=== PATIENT | female | born 1945 | race Caucasian/White ===

== ENCOUNTER 2017-04-09 12:23 | Emergency (ER) | payer MEDICARE, BC ==
[2017-04-09 12:31] VITALS: BP 146/71
[2017-04-09] MEDS ORDERED: methylPREDNISolone Sodium Succinate 125 MG/2 ML SDV IM ONE (12:37)
--- NOTE | 2017-04-09 12:37 | EDM.PDOC ---
ED HPI GENERAL MEDICAL PROBLEM - General Chief Complaint: Bite:Animal, Insect Stated Complaint: bee sting Time Seen by Provider: 04/09/17 12:29 Source of Information: Reports: Patient, Family, RN, RN Notes Reviewed History Limitations: Reports: No Limitations - History of Present Illness INITIAL COMMENTS - FREE TEXT/NARRATIVE: Patient presents to the ED at [facility] s/p insect bite. Patient states she was stung by a bee about one hour ago. Patient states she use a credit card to swipe the area to remove any remaining stinger. Patient also rubbed the area with an Alcohol pad and used a Benadryl stick to the affected area. Onset: Today Onset Date: 04/09/17 Onset Time: 11:15 - Related Data Allergies Allergy/AdvReac Type Severity Reaction Status Date / Time codeine Allergy Syncope Verified 04/09/17 12:34 erythromycin base Allergy Rash Verified 04/09/17 12:34 [Erythromycin Base] Penicillins Allergy Rash Verified 04/09/17 12:34 metronidazole [From Flagyl] AdvReac Nausea Verified 04/09/17 12:34 Pham (Plants) Allergy Shortness Uncoded 01/30/15 08:15 of Breath Home Meds: Home Meds Aspirin 325 mg PO DAILY 04/26/14 [History] Cholecalciferol (Vitamin D3) [Vitamin D3] 400 unit PO DAILY 04/26/14 [History] Clindamycin Phosphate [Cleocin T 1% Lotion] 1 applic TOP BID 04/26/14 [History] Clobetasol [Clobetasol 0.05%] 1 applic TOP BID 04/26/14 [History] Simvastatin [Zocor] 5 mg PO BEDTIME 04/26/14 [History] predniSONE [Deltasone] 20 mg PO BID #6 tablet 04/09/17 [Rx] Past Medical History Other Musculoskeletal History: rt knee pain Social & Family History - Tobacco Use Smoking Status *Q: Never Smoker - Alcohol Use Days Per Week of Alcohol Use: 0 - Recreational Drug Use Recreational Drug Use: No Drug Use in Last 12 Months: No ED ROS GENERAL - Review of Systems Review Of Systems: See Below Constitutional: Denies: Fever, Chills, Weakness HEENT: Reports: No Symptoms Respiratory: Denies: Shortness of Breath, Cough Cardiovascular: Denies: Chest Pain, Palpitations Skin: Reports: Erythema Neurological: Reports: No Symptoms ED EXAM, ANIMAL BITE - Physical Exam Exam: See Below Exam Limited By: No Limitations General Appearance: Alert, No Apparent Distress Throat/Mouth: Normal Inspection, Normal Oropharynx, No Airway Compromise Neck: Supple Respiratory/Chest: No Respiratory Distress, Lungs Clear, Normal Breath Sounds Cardiovascular: Regular Rate, Rhythm Neurological: Alert, Oriented Skin Exam: Normal Color, Warm/Dry, Other (erythema over the proximal 1/3 of the volar surface right arm consistent with bee sting) Lymphadenopathy: Bilateral: No Adenopathy Course - Vital Signs Last Recorded V/S: Last Vital Signs Temp 35.8 C 04/09/17 12:31 Pulse 60 04/09/17 12:31 Resp 16 04/09/17 12:31 BP 146/71 H 04/09/17 12:31 Pulse Ox 97 04/09/17 12:31 - Orders/Labs/Meds Orders: Active Orders 24 hr Category Date Time Status methylPREDNISolone Sod Succ [Solu-MEDROL] Med 04/09/17 12:37 Once 125 mg IM ONETIME ONE Departure - Departure Time of Disposition: 12:38 Disposition: Home, Self-Care 01 Condition: Good Clinical Impression: Bee sting reaction Qualifiers: Encounter type: initial encounter Injury intent: accidental or unintentional Qualified Code(s): T63.441A - Toxic effect of venom of bees, accidental ( unintentional), initial encounter - Discharge Information Prescriptions: predniSONE [Deltasone] 20 mg PO BID #6 tablet Instructions: Insect Bite, [id number] Forms: ED Department Discharge - Problem List Review Problem List Initiated/Reviewed/Updated: Yes - My Orders Last 24 Hours: My Active Orders 04/09/17 12:37 methylPREDNISolone Sod Succ [Solu-MEDROL] 125 mg IM ONETIME ONE - Assessment/Plan Last 24 Hours: My Active Orders 04/09/17 12:37 methylPREDNISolone Sod Succ [Solu-MEDROL] 125 mg IM ONETIME ONE
== END 2017-04-09 12:46 | disposition home or self-care (01) ==
LOC: VM.ED 12:23
DX: T63.441A Toxic effect of venom of bees, accidental (unintentional), initial encounter (principal); Z88.5 Allergy status to narcotic agent; Z88.0 Allergy status to penicillin; Z88.1 Allergy status to other antibiotic agents; Z79.82 Long term (current) use of aspirin
CPT/HCPCS: 96372; 99282; J2930; 99283-GF

== ENCOUNTER 2017-04-17 19:50 | Emergency (ER) | payer MEDICARE, BC ==
[2017-04-17] MEDS ORDERED: Ibuprofen 200 MG Tab PO ONE (20:16)
[2017-04-17 21:19] LABS: CHLORIDE,CL 104 mmol/L (98-107); SODIUM,NA 140 mmol/L (136-145)
[2017-04-17] MEDS ORDERED: Sodium Chloride 0.9% 100 ML IV ONE (22:09)
[2017-04-17] MEDS ORDERED: Iopamidol 612 MG/ML 100 ML Bottle IVPUSH ONE (22:09)
[2017-04-18 01:08] VITALS: BP 138/72
--- NOTE | 2017-04-18 03:05 | ER ---
Date of Service: 04/17/2017 SUBJECTIVE: Bebeto presents to the emergency room with complaints of pain underneath both of her breasts as well as pain in her left anterolateral chest. She states that she began experiencing this discomfort earlier this evening. She states that she has also been mildly short of breath, but she states that this may be secondary to some anxiety associated with the discomfort. The patient states that she has not experienced discomfort like this in the past. She states that she has not been experiencing any fever or chills. Denies any cough or chest congestion. The patient denies any recent trauma. She states that she is not experiencing any other symptoms other than what was previously mentioned. PAST MEDICAL HISTORY: 1. Dyslipidemia. 2. Colon polyps. 3. GERD. 4. Abnormal liver function tests. 5. History of kidney stones. 6. Obesity. 7. Impaired fasting blood glucose. MEDICATIONS: 1. Lipitor. 2. Vitamin D3. 3. Aspirin. ALLERGIES: Codeine, erythromycin, penicillin, simvastatin, Flagyl, and some sen. REVIEW OF SYSTEMS: General: Denies any fever or chills. HEENT: No sore throat, rhinorrhea, or congestion. Respiratory: No shortness of breath. Cardiac: Denies any substernal chest pain. Chest: She does complain of pain to her lower anterior chest wall with radiation into her left anterolateral chest and into the area of her left axilla. Denies any recent trauma. Gastrointestinal: No nausea, vomiting, or diarrhea. No melena, hematochezia, hematemesis. Genitourinary: Denies any dysuria. Musculoskeletal: Please see history of present illness. PHYSICAL EXAMINATION: General: A 72-year-old female patient, who is in no acute distress. Vital Signs: Initial blood pressure was 176/86, pulse rate was 76, temperature was 36.4. Recheck was found to be 140/83. Skin: Warm, pink, and dry. HEENT: Head is normocephalic and atraumatic. Eyes, PERRLA. Extraocular movements are intact. Mouth, oral mucosa is moist. Lungs: Clear to auscultation. Heart: Regular rate and rhythm. Abdomen: Soft, nontender. There is no hepatosplenomegaly or masses noted. Extremities: Without edema. Musculoskeletal: Unable to reproduce the pain on palpation of her anterior or lateral chest. She does complain of some increased discomfort with deep breathing. Neurologic: Cranial nerves II through XII are intact. Her speech is fluent. Her gait is within normal limits. LABORATORY DATA: WBCs 9.6, hemoglobin is 13.8, and platelets are 192. Coag: D- dimer positive at 0.77. Sodium is 140, potassium is 4.2, chloride is 104, bicarb is 27, BUN is 13, creatinine is 1.0, creatinine clearance is 41.45, GFR is 54, glucose is 212, calcium is 9.1, and corrected calcium is 9.56. Total bilirubin is 0.5, AST is 29, ALT is 67, and alkaline phosphatase is 94. Troponin is less than 0.017. Total protein is 6.6 and albumin is 3.4. IMAGING STUDIES: CT angiogram of the patient's chest was obtained. There was no evidence of any pulmonary embolism or acute infiltrate. ASSESSMENT: Atypical chest pain. PLAN: The patient will be discharged. Tylenol, ibuprofen for discomfort. I would like her to return to the emergency room if she develops any chest pain, shortness of breath, lightheadedness, weakness, or other worrisome signs or symptoms. All questions were answered. MWK: 04/18/2017 00:13:23 MODL: 04/18/2017 02:58:29 /[id number]
== END 2017-04-18 00:18 | disposition home or self-care (01) ==
LOC: SUPCPDRO 19:50 → VM.ED 19:50
DX: R07.89 Other chest pain (principal); E78.5 Hyperlipidemia, unspecified; K21.9 Gastro-esophageal reflux disease without esophagitis; E66.9 Obesity, unspecified; Z88.5 Allergy status to narcotic agent; Z88.0 Allergy status to penicillin; Z88.1 Allergy status to other antibiotic agents; Z88.8 Allergy status to other drugs, medicaments and biological substances
CPT/HCPCS: 36415; 71020; 71275; 80053; 84484; 85025; 85379; 93005; 99284; A9270; Q9967

== ENCOUNTER 2018-01-11 02:05 | Observation (INO) | payer MEDICARE, BC ==
[2018-01-11] MEDS ORDERED: Sodium Chloride 0.9% 10 ML Syringe FLUSH PRN (02:18)
[2018-01-11] MEDS ORDERED: GI Cocktail Oral Solution 30 ML PO ONE (02:20)
[2018-01-11] MEDS ORDERED: Ondansetron 4 MG/2 ML SDV IVPUSH ONE (02:20)
[2018-01-11] MEDS ORDERED: Ondansetron 4 MG/2 ML SDV ONE (02:46)
[2018-01-11] MEDS ORDERED: GI Cocktail Oral Solution 30 ML ONE (02:47)
[2018-01-11 02:59] LABS: CHLORIDE,CL 104 mmol/L (98-107); SODIUM,NA 140 mmol/L (136-145)
[2018-01-11] MEDS ORDERED: Take Home: Acetaminophen/HYDROcodone 325-5 MG, 5 Tab Pack PO ONE (05:09)
[2018-01-11] MEDS ORDERED: Take Home: Sulfamethoxazole/Trimethoprim 800-160 MG Tab, 2 Tab Pack PO ONE (05:09)
[2018-01-11] MEDS ORDERED: Tamsulosin 0.4 MG Cap.ER PO ONE (05:10)
[2018-01-11] MEDS ORDERED: HYDROmorphone 1 MG/ML Syringe IVPUSH ONE (05:51)
[2018-01-11] MEDS ORDERED: Sodium Chloride 0.9% 1,000 ML IV ONE ×2 (05:51→06:27)
[2018-01-11] MEDS ORDERED: Tamsulosin 0.4 MG Cap.ER PO SCH (08:00)
[2018-01-11] MEDS: Ondansetron 4 MG/2 ML SDV IVPUSH SCH ×2 (08:04→15:17)
[2018-01-11] MEDS ORDERED: Acetaminophen/HYDROcodone 325-10 MG Tab PO PRN (09:41)
--- NOTE | 2018-01-11 09:49 | EDM.PDOC ---
ED HPI GENERAL MEDICAL PROBLEM - General Chief Complaint: Abdominal Pain Stated Complaint: Abdominal pain Time Seen by Provider: 01/11/18 02:10 Source of Information: Reports: Patient History Limitations: Reports: No Limitations - History of Present Illness INITIAL COMMENTS - FREE TEXT/NARRATIVE: This ER note may be used as an admission H and P. Pt. presents to ER with complaints of abdominal pain, diaphoresis, and groin pain. Pt. states that this discomfort started in the night and woke the pt. from sleep. She states that she is not experiencing any fever or chills. She is nauseated but has not vomited. Pt. denies any shortness of breath of substernal chest discomfort. Denies any flank pain. Onset: Today Onset Date: 01/11/18 Location: Reports: Abdomen Quality: Reports: Sharp Severity: Severe Associated Symptoms: Reports: Diaphoresis, Nausea/Vomiting Treatments TOOL CHECKER: Reports: Acetaminophen Abdomen Pain Score (Numeric/FACES): 8 - Related Data Allergies Allergy/AdvReac Type Severity Reaction Status Date / Time codeine Allergy Syncope Verified 01/11/18 04:14 erythromycin base Allergy Rash Verified 01/11/18 04:14 [Erythromycin Base] Penicillins Allergy Rash Verified 01/11/18 04:14 simvastatin Allergy Rash Verified 01/11/18 04:14 metronidazole [From Flagyl] AdvReac Nausea Verified 01/11/18 04:14 Pham (Plants) Allergy Severe Shortness Uncoded 01/11/18 04:14 of Breath Home Meds: Home Meds Aspirin 325 mg PO DAILY 04/26/14 [History] Clindamycin Phosphate [Cleocin T 1% Lotion] 1 applic TOP BID 04/26/14 [History] Clobetasol [Clobetasol 0.05%] 1 applic TOP BID 04/26/14 [History] atorvaSTATin [Lipitor] 10 mg PO BEDTIME 04/17/17 [History] Famotidine [Pepcid] 20 mg DAILY 07/09/17 [History] Mupirocin Oint [Bactroban Oint] 22 gm TOP DAILY 07/09/17 [History] Past Medical History HEENT History: Reports: Cataract, Other (See Below) Other HEENT History: Aquired deformity of nose Cardiovascular History: Reports: High Cholesterol Respiratory History: Reports: Other (See Below) Other Respiratory History: Hospitalized twice for pneumonia Gastrointestinal History: Reports: Colon Polyp, GERD, Other (See Below) Other Gastrointestinal History: Abnormal Liver Function Genitourinary History: Reports: UTI, Recurrent, Other (See Below) Other Genitourinary History: Fibrocystic breast. History of kidney stones Other Musculoskeletal History: Bilateral knee pain Neurological History: Reports: Other (See Below) Other Neuro History: Paresthesia Psychiatric History: Reports: Other (See Below) Other Psychiatric History: High risk medication use Endocrine/Metabolic History: Reports: Obesity/BMI 30+, Vitamin D Deficiency, Other (See Below) Other Endocrine/Metabolic History: Hyperglycemia. Hirsutism. Elevated testosterone level in female Dermatologic History: Reports: Other (See Below) Other Dermatologic History: Intertrigo (overgrowth of yeast). Lichen planus - Past Surgical History HEENT Surgical History: Reports: Tonsillectomy GI Surgical History: Reports: Appendectomy, Cholecystectomy Female Surgical History: Reports: Breast Biopsy, Hysterectomy Musculoskeletal Surgical History: Reports: Carpal Tunnel Social & Family History - Caffeine Use Caffeine Use: Reports: Other Other Caffeine Use: Rarely drinks caffeine ED ROS GENERAL - Review of Systems Review Of Systems: See Below Constitutional: Reports: Diaphoresis HEENT: Reports: No Symptoms Respiratory: Reports: No Symptoms Cardiovascular: Reports: No Symptoms Endocrine: Reports: No Symptoms GI/Abdominal: Reports: Abdominal Pain, Nausea. Denies: Black Stool, Bloody Stool, Diarrhea, Decreased Appetite, Hematemesis, Vomiting : Reports: No Symptoms Musculoskeletal: Reports: No Symptoms Skin: Reports: No Symptoms Neurological: Reports: No Symptoms Psychiatric: Reports: No Symptoms Hematologic/Lymphatic: Reports: No Symptoms Immunologic: Reports: No Symptoms ED EXAM, GENERAL - Physical Exam Exam: See Below Exam Limited By: No Limitations General Appearance: Alert, WD/WN, No Apparent Distress Eye Exam: Bilateral Eye: EOMI, Normal Fundi, Normal Inspection, PERRL Ears: Normal External Exam, Normal Canal, Hearing Grossly Normal, Normal TMs Ear Exam: Bilateral Ear: Auricle Normal, Canal Normal, TM normal Nose: Normal Inspection, Normal Mucosa, No Blood Throat/Mouth: Normal Inspection, Normal Lips, Normal Teeth, Normal Gums, Normal Oropharynx, Normal Voice, No Airway Compromise Head: Atraumatic, Normocephalic Neck: Normal Inspection, Supple, Non-Tender, Full Range of Motion Respiratory/Chest: No Respiratory Distress, Lungs Clear, Normal Breath Sounds, No Accessory Muscle Use, Chest Non-Tender Cardiovascular: Normal Peripheral Pulses, Regular Rate, Rhythm, No Edema, No Gallop, No JVD, No Murmur, No Rub Peripheral Pulses: 4+: Radial (L), Radial (R) GI/Abdominal: Normal Bowel Sounds, Soft, Non-Tender, No Organomegaly, No Distention, No Abnormal Bruit, No Mass (Female) Exam: Deferred Rectal (Female) Exam: Deferred Back Exam: Normal Inspection, Full Range of Motion, NT Extremities: Normal Inspection, Normal Range of Motion, Non-Tender, Normal Capillary Refill, No Pedal Edema Neurological: Alert, Oriented, CN II-XII Intact, Normal Cognition, Normal Gait, Normal Reflexes, No Motor/Sensory Deficits Psychiatric: Normal Affect, Normal Mood Skin Exam: Warm, Dry, Intact, Normal Color, No Rash Course - Vital Signs Last Recorded V/S: Last Vital Signs Temp 36.3 C 01/11/18 06:31 Pulse 54 L 01/11/18 06:31 Resp 18 01/11/18 06:31 BP 110/45 L 01/11/18 06:31 Pulse Ox 93 L 01/11/18 06:31 - Orders/Labs/Meds Orders: Active Orders 24 hr Category Date Time Status Abdomen Pelvis wo Cont [CT] Stat Exams 01/11/18 03:23 Taken UA W/MICROSCOPIC [URIN] Stat Lab 01/11/18 03:00 Ordered Sodium Chloride 0.9% [Saline Flush] Med 01/11/18 02:18 Active 10 ml FLUSH ASDIRECTED PRN Peripheral IV Insertion Adult [OM.PC] Routine Oth 01/11/18 02:18 Ordered Medication Orders Hydrocodone Bitart/Acetaminophen ([place] 325-10 Mg) 1 tab PO Q4H PRN PRN Reason: Pain (moderate 4-6) Sodium Chloride (Normal Saline) 1,000 mls @ 250 mls/hr IV ONETIME ONE Stop: 01/11/18 10:26 Last Admin: 01/11/18 07:30 Dose: 250 mls/hr Ondansetron HCl (Zofran) 4 mg IVPUSH Q8H ZOYA Last Admin: 01/11/18 08:04 Dose: 4 mg Sodium Chloride (Saline Flush) 10 ml FLUSH ASDIRECTED PRN PRN Reason: Keep Vein Open Tamsulosin HCl (Flomax) 0.4 mg PO DAILY [facility] Last Admin: 01/11/18 08:04 Dose: 0.4 mg Trimethoprim/Sulfamethoxazole (Septra Ds) 1 tab PO BID [facility] Labs: Laboratory Tests 01/11/18 01/11/18 01/11/18 Range/Units 02:30 02:30 02:30 WBC 8.2 (4.0-10.0) x10^3/uL RBC 4.52 (4.00-5.50) x10^6/uL Hgb 13.3 (12.0-16.0) g/dL Hct 41.7 (33.0-47.0) % MCV 92.3 (78.0-93.0) fL MCH 29.4 (26.0-32.0) pg MCHC 31.9 L (32.0-36.0) g/dL RDW Coeff of Kody 14.0 (10.0-15.0) % Plt Count 181 (130-400) x10^3/uL Neut % (Auto) 60.4 (50.0-80.0) % Lymph % (Auto) 29.9 (25.0-50.0) % [place] % (Auto) 6.9 (2.0-11.0) % Eos % (Auto) 2.6 (0.0-4.0) % Baso % (Auto) 0.2 (0.2-1.2) % PT 10.3 (9.6-11.4) SEC INR 1.0 L (2.0-3.5) Sodium 140 (136-145) mmol/L Potassium 3.7 (3.5-5.1) mmol/L Chloride 104 (98-107) mmol/L Carbon Dioxide 28 (21-32) mmol/L Anion Gap 11.7 (10-20) mmol/L BUN 18 (7-18) mg/dL Creatinine 1.2 H (0.55-1.02) mg/dL Est Cr Clr Drug Dosing TNP Estimated GFR (MDRD) 44 Glucose 157 H (74-106) mg/dL Lactic Acid (0.4-2.0) mmol/L Calcium 8.9 (8.5-10.1) mg/dL Corrected Calcium 9.22 (8.5-10.1) mg/dL Total Bilirubin 0.7 (0.2-1.0) mg/dL AST 35 (15-37) U/L ALT 64 H (14-59) U/L Alkaline Phosphatase 85 (46-116) U/L Troponin I < 0.017 (<=0.056) ng/mL C-Reactive Protein 0.3 (<=0.9) mg/dL Total Protein 6.9 (6.4-8.2) g/dL Albumin 3.6 (3.4-5.0) g/dL Globulin 3.3 Albumin/Globulin Ratio 1.09 Urine Color (YELLOW) Urine Appearance (CLEAR) Urine pH (5.0-8.0) Ur Specific [place] Urine Protein (NEGATIVE) mg/dL Urine Glucose (UA) (NEGATIVE) mg/dL Urine Ketones (NEGATIVE) mg/dL Urine Occult Blood (NEGATIVE) Urine Nitrite (NEGATIVE) Urine Bilirubin (NEGATIVE) Urine Urobilinogen (0.2) EU/dL Ur Leukocyte Esterase (NEGATIVE) Urine RBC (NOT SEEN) /HPF Urine WBC (NOT SEEN) /HPF Ur Squamous Epith Cells (NEGATIVE) /HPF Urine Bacteria (NEGATIVE) /HPF Urine Mucus (NEGATIVE) /LPF 01/11/18 01/11/18 Range/Units 02:30 03:00 WBC (4.0-10.0) x10^3/uL RBC (4.00-5.50) x10^6/uL Hgb (12.0-16.0) g/dL Hct (33.0-47.0) % MCV (78.0-93.0) fL MCH (26.0-32.0) pg MCHC (32.0-36.0) g/dL RDW Coeff of Kody (10.0-15.0) % Plt Count (130-400) x10^3/uL Neut % (Auto) (50.0-80.0) % Lymph % (Auto) (25.0-50.0) % [place] % (Auto) (2.0-11.0) % Eos % (Auto) (0.0-4.0) % Baso % (Auto) (0.2-1.2) % PT (9.6-11.4) SEC INR (2.0-3.5) Sodium (136-145) mmol/L Potassium (3.5-5.1) mmol/L Chloride (98-107) mmol/L Carbon Dioxide (21-32) mmol/L Anion Gap (10-20) mmol/L BUN (7-18) mg/dL Creatinine (0.55-1.02) mg/dL Est Cr Clr Drug Dosing Estimated GFR (MDRD) Glucose (74-106) mg/dL Lactic Acid 1.2 (0.4-2.0) mmol/L Calcium (8.5-10.1) mg/dL Corrected Calcium (8.5-10.1) mg/dL Total Bilirubin (0.2-1.0) mg/dL AST (15-37) U/L ALT (14-59) U/L Alkaline Phosphatase (46-116) U/L Troponin I (<=0.056) ng/mL C-Reactive Protein (<=0.9) mg/dL Total Protein (6.4-8.2) g/dL Albumin (3.4-5.0) g/dL Globulin Albumin/Globulin Ratio Urine Color Yellow (YELLOW) Urine Appearance Cloudy H (CLEAR) Urine pH 5.5 (5.0-8.0) Ur Specific [place] >=1.030 Urine Protein 100 H (NEGATIVE) mg/dL Urine Glucose (UA) Negative (NEGATIVE) mg/dL Urine Ketones 15 H (NEGATIVE) mg/dL Urine Occult Blood Large H (NEGATIVE) Urine Nitrite Negative (NEGATIVE) Urine Bilirubin Small H (NEGATIVE) Urine Urobilinogen 0.2 (0.2) EU/dL Ur Leukocyte Esterase Trace H (NEGATIVE) Urine RBC Semi-packed (NOT SEEN) /HPF Urine WBC 5-10 H (NOT SEEN) /HPF Ur Squamous Epith Cells Few H (NEGATIVE) /HPF Urine Bacteria Moderate H (NEGATIVE) /HPF Urine Mucus Not seen (NEGATIVE) /LPF Meds: Medications Generic Name Dose Route Start Last Admin Trade Name Freq PRN Reason Stop Dose Admin Hydrocodone Bitart/Acetaminophen 1 tab 01/11/18 09:41 [place] 325-10 Mg PO Q4H PRN Pain (moderate 4-6) Sodium Chloride 1,000 mls @ 250 mls/hr 01/11/18 06:27 01/11/18 07:30 Normal Saline IV 01/11/18 10:26 250 mls/hr ONETIME ONE Administration Ondansetron HCl 4 mg 01/11/18 06:30 01/11/18 08:04 Zofran IVPUSH 4 mg Q8H ZOYA Administration Sodium Chloride 10 ml 01/11/18 02:18 Saline Flush FLUSH ASDIRECTED PRN Keep Vein Open Tamsulosin HCl 0.4 mg 01/11/18 08:00 01/11/18 08:04 Flomax PO 0.4 mg DAILY ZOYA Administration Trimethoprim/Sulfamethoxazole 1 tab 01/11/18 09:45 Septra Ds PO BID ZOYA Discontinued Medications Generic Name Dose Route Start Last Admin Trade Name Freq PRN Reason Stop Dose Admin Hydrocodone Bitart/Acetaminophen 1 packet 01/11/18 05:09 01/11/18 05:33 Take Home: Acetam/Hydrocodon 325-5 Mg, 5 Pack PO 01/11/18 05:10 1 packet ONETIME ONE Administration Al Hydroxide/Mg Hydroxide 30 ml 01/11/18 02:20 01/11/18 03:30 Gi Cocktail PO 01/11/18 02:21 30 ml ONETIME ONE Administration Hydromorphone HCl 1 mg 01/11/18 05:51 01/11/18 06:05 Dilaudid IVPUSH 01/11/18 05:52 1 mg ONETIME ONE Administration Sodium Chloride 1,000 mls @ 1,000 mls/hr 01/11/18 05:51 01/11/18 06:00 Normal Saline IV 01/11/18 06:50 1,000 mls/hr .BOLUS ONE Administration Ondansetron HCl 4 mg 01/11/18 02:20 01/11/18 03:26 Zofran IVPUSH 01/11/18 02:21 4 mg ONETIME ONE Administration Tamsulosin HCl 0.4 mg 01/11/18 05:10 01/11/18 05:34 Flomax PO 01/11/18 05:11 0.4 mg ONETIME ONE Administration Trimethoprim/Sulfamethoxazole 1 packet 01/11/18 05:09 01/11/18 05:34 Take Home: Sulfameth/Trimet 800-160mg, 2 Pack PO 01/11/18 05:10 1 packet ONETIME ONE Administration Departure - Departure Time of Disposition: 06:31 Disposition: Refer to Observation Clinical Impression: Nephrolithiasis, UTI (urinary tract infection) - Discharge Information - My Orders Last 24 Hours: My Active Orders 01/11/18 02:18 Sodium Chloride 0.9% [Saline Flush] 10 ml FLUSH ASDIRECTED PRN Peripheral IV Insertion Adult [OM.PC] Routine 01/11/18 03:00 UA W/MICROSCOPIC [URIN] Stat 01/11/18 03:23 Abdomen Pelvis wo Cont [CT] Stat - Assessment/Plan Last 24 Hours: My Active Orders 01/11/18 02:18 Sodium Chloride 0.9% [Saline Flush] 10 ml FLUSH ASDIRECTED PRN Peripheral IV Insertion Adult [OM.PC] Routine 01/11/18 03:00 UA W/MICROSCOPIC [URIN] Stat 01/11/18 03:23 Abdomen Pelvis wo Cont [CT] Stat
--- NOTE | 2018-01-11 09:59 | PCM.PN ---
- General Info Date of Service: 01/11/18 Admission Dx/Problem (Free Text): Pt. is feeling much better. Denies and fever or chills. states that her discomfort is much improved after the dilaudid. She states that the nausea is improved after the zofran. Denies any chest pain or shortness of breath. Functional Status: Reports: Pain Controlled - Review of Systems General: Reports: No Symptoms HEENT: Reports: No Symptoms Pulmonary: Reports: No Symptoms Cardiovascular: Reports: No Symptoms Gastrointestinal: Reports: No Symptoms Genitourinary: Reports: No Symptoms Musculoskeletal: Reports: No Symptoms Skin: Reports: No Symptoms Neurological: Reports: No Symptoms Psychiatric: Reports: No Symptoms - Patient Data Vitals - Most Recent: Last Vital Signs Temp 36.3 C 01/11/18 06:31 Pulse 54 L 01/11/18 06:31 Resp 18 01/11/18 06:31 BP 110/45 L 01/11/18 06:31 Pulse Ox 93 L 01/11/18 06:31 Weight - Most Recent: 99.79 kg I&O - Last 24 Hours: Intake & Output 01/10/18 01/11/18 01/11/18 22:59 06:59 14:59 Intake Total 240 Balance 240 Lab Results Last 24 Hours: Laboratory Results - last 24 hr 01/11/18 01/11/18 01/11/18 Range/Units 02:30 02:30 02:30 WBC 8.2 (4.0-10.0) x10^3/uL RBC 4.52 (4.00-5.50) x10^6/uL Hgb 13.3 (12.0-16.0) g/dL Hct 41.7 (33.0-47.0) % MCV 92.3 (78.0-93.0) fL MCH 29.4 (26.0-32.0) pg MCHC 31.9 L (32.0-36.0) g/dL RDW Coeff of Kody 14.0 (10.0-15.0) % Plt Count 181 (130-400) x10^3/uL Neut % (Auto) 60.4 (50.0-80.0) % Lymph % (Auto) 29.9 (25.0-50.0) % [place] % (Auto) 6.9 (2.0-11.0) % Eos % (Auto) 2.6 (0.0-4.0) % Baso % (Auto) 0.2 (0.2-1.2) % PT 10.3 (9.6-11.4) SEC INR 1.0 L (2.0-3.5) Sodium 140 (136-145) mmol/L Potassium 3.7 (3.5-5.1) mmol/L Chloride 104 (98-107) mmol/L Carbon Dioxide 28 (21-32) mmol/L Anion Gap 11.7 (10-20) mmol/L BUN 18 (7-18) mg/dL Creatinine 1.2 H (0.55-1.02) mg/dL Est Cr Clr Drug Dosing TNP Estimated GFR (MDRD) 44 Glucose 157 H (74-106) mg/dL Lactic Acid (0.4-2.0) mmol/L Calcium 8.9 (8.5-10.1) mg/dL Corrected Calcium 9.22 (8.5-10.1) mg/dL Total Bilirubin 0.7 (0.2-1.0) mg/dL AST 35 (15-37) U/L ALT 64 H (14-59) U/L Alkaline Phosphatase 85 (46-116) U/L Troponin I < 0.017 (<=0.056) ng/mL C-Reactive Protein 0.3 (<=0.9) mg/dL Total Protein 6.9 (6.4-8.2) g/dL Albumin 3.6 (3.4-5.0) g/dL Globulin 3.3 Albumin/Globulin Ratio 1.09 Urine Color (YELLOW) Urine Appearance (CLEAR) Urine pH (5.0-8.0) Ur Specific [place] Urine Protein (NEGATIVE) mg/dL Urine Glucose (UA) (NEGATIVE) mg/dL Urine Ketones (NEGATIVE) mg/dL Urine Occult Blood (NEGATIVE) Urine Nitrite (NEGATIVE) Urine Bilirubin (NEGATIVE) Urine Urobilinogen (0.2) EU/dL Ur Leukocyte Esterase (NEGATIVE) Urine RBC (NOT SEEN) /HPF Urine WBC (NOT SEEN) /HPF Ur Squamous Epith Cells (NEGATIVE) /HPF Urine Bacteria (NEGATIVE) /HPF Urine Mucus (NEGATIVE) /LPF 01/11/18 01/11/18 Range/Units 02:30 03:00 WBC (4.0-10.0) x10^3/uL RBC (4.00-5.50) x10^6/uL Hgb (12.0-16.0) g/dL Hct (33.0-47.0) % MCV (78.0-93.0) fL MCH (26.0-32.0) pg MCHC (32.0-36.0) g/dL RDW Coeff of [place] (10.0-15.0) % Plt Count (130-400) x10^3/uL Neut % (Auto) (50.0-80.0) % Lymph % (Auto) (25.0-50.0) % [place] % (Auto) (2.0-11.0) % Eos % (Auto) (0.0-4.0) % Baso % (Auto) (0.2-1.2) % PT (9.6-11.4) SEC INR (2.0-3.5) Sodium (136-145) mmol/L Potassium (3.5-5.1) mmol/L Chloride (98-107) mmol/L Carbon Dioxide (21-32) mmol/L Anion Gap (10-20) mmol/L BUN (7-18) mg/dL Creatinine (0.55-1.02) mg/dL Est Cr Clr Drug Dosing Estimated GFR (MDRD) Glucose (74-106) mg/dL Lactic Acid 1.2 (0.4-2.0) mmol/L Calcium (8.5-10.1) mg/dL Corrected Calcium (8.5-10.1) mg/dL Total Bilirubin (0.2-1.0) mg/dL AST (15-37) U/L ALT (14-59) U/L Alkaline Phosphatase (46-116) U/L Troponin I (<=0.056) ng/mL C-Reactive Protein (<=0.9) mg/dL Total Protein (6.4-8.2) g/dL Albumin (3.4-5.0) g/dL Globulin Albumin/Globulin Ratio Urine Color Yellow (YELLOW) Urine Appearance Cloudy H (CLEAR) Urine pH 5.5 (5.0-8.0) Ur Specific [place] >=1.030 Urine Protein 100 H (NEGATIVE) mg/dL Urine Glucose (UA) Negative (NEGATIVE) mg/dL Urine Ketones 15 H (NEGATIVE) mg/dL Urine Occult Blood Large H (NEGATIVE) Urine Nitrite Negative (NEGATIVE) Urine Bilirubin Small H (NEGATIVE) Urine Urobilinogen 0.2 (0.2) EU/dL Ur Leukocyte Esterase Trace H (NEGATIVE) Urine RBC Semi-packed (NOT SEEN) /HPF Urine WBC 5-10 H (NOT SEEN) /HPF Ur Squamous Epith Cells Few H (NEGATIVE) /HPF Urine Bacteria Moderate H (NEGATIVE) /HPF Urine Mucus Not seen (NEGATIVE) /LPF Med Orders - Current: Current Medications Hydrocodone Bitart/Acetaminophen ([place] 325-10 Mg) 1 tab PO Q4H PRN PRN Reason: Pain (moderate 4-6) Sodium Chloride (Normal Saline) 1,000 mls @ 250 mls/hr IV ONETIME ONE Stop: 01/11/18 10:26 Last Admin: 01/11/18 07:30 Dose: 250 mls/hr Ondansetron HCl (Zofran) 4 mg IVPUSH Q8H ZOYA Last Admin: 01/11/18 08:04 Dose: 4 mg Sodium Chloride (Saline Flush) 10 ml FLUSH ASDIRECTED PRN PRN Reason: Keep Vein Open Tamsulosin HCl (Flomax) 0.4 mg PO DAILY [facility] Last Admin: 01/11/18 08:04 Dose: 0.4 mg Trimethoprim/Sulfamethoxazole (Septra Ds) 1 tab PO BID ZOYA Discontinued Medications Hydrocodone Bitart/Acetaminophen (Take Home: Acetam/Hydrocodon 325-5 Mg, 5 Pack ) 1 packet PO ONETIME ONE Stop: 01/11/18 05:10 Last Admin: 01/11/18 05:33 Dose: 1 packet Al Hydroxide/Mg Hydroxide (Gi Cocktail) 30 ml PO ONETIME ONE Stop: 01/11/18 02:21 Last Admin: 01/11/18 03:30 Dose: 30 ml Hydromorphone HCl (Dilaudid) 1 mg IVPUSH ONETIME ONE Stop: 01/11/18 05:52 Last Admin: 01/11/18 06:05 Dose: 1 mg Sodium Chloride (Normal Saline) 1,000 mls @ 1,000 mls/hr IV .BOLUS ONE Stop: 01/11/18 06:50 Last Admin: 01/11/18 06:00 Dose: 1,000 mls/hr Ondansetron HCl (Zofran) 4 mg IVPUSH ONETIME ONE Stop: 01/11/18 02:21 Last Admin: 01/11/18 03:26 Dose: 4 mg Tamsulosin HCl (Flomax) 0.4 mg PO ONETIME ONE Stop: 01/11/18 05:11 Last Admin: 01/11/18 05:34 Dose: 0.4 mg Trimethoprim/Sulfamethoxazole (Take Home: Sulfameth/Trimet 800-160mg, 2 Pack) 1 packet PO ONETIME ONE Stop: 01/11/18 05:10 Last Admin: 01/11/18 05:34 Dose: 1 packet - Exam General: Alert, Oriented HEENT: Pupils Equal, Pupils Reactive, EOMI, Mucous Membr. Moist/[place] Neck: Supple Lungs: Clear to Auscultation, Normal Respiratory Effort Cardiovascular: Regular Rate, Regular Rhythm GI/Abdominal Exam: Normal Bowel Sounds, Soft, Non-Tender, No Organomegaly, No Distention, No Abnormal Bruit, No Mass, Pelvis Stable (Female) Exam: Normal External Exam, Normal Speculum Exam, Normal Bimanual Exam Back Exam: Normal Inspection, Full Range of Motion Extremities: Normal Inspection, Normal Range of Motion, Non-Tender, No Pedal Edema, Normal Capillary Refill Skin: Warm, Dry, Intact Wound/Incisions: Healing Well Neurological: No New Focal Deficit Psy/Mental Status: Alert, Normal Affect, Normal Mood - Problem List Review Problem List Initiated/Reviewed/Updated: Yes - My Orders Last 24 Hours: My Active Orders 01/11/18 02:18 Sodium Chloride 0.9% [Saline Flush] 10 ml FLUSH ASDIRECTED PRN Peripheral IV Insertion Adult [OM.PC] Routine 01/11/18 03:00 UA W/MICROSCOPIC [URIN] Stat 01/11/18 03:23 Abdomen Pelvis wo Cont [CT] Stat 01/11/18 05:49 Patient Status [ADT] Routine 01/11/18 06:27 Sodium Chloride 0.9% [Normal Saline] 1,000 ml IV ONETIME 01/11/18 06:28 Intake and Output [RC] 18 Up ad Doreen [RC] ASDIRECTED VTE/DVT Education [RC] .PRN 01/11/18 06:30 Ondansetron [Zofran] 4 mg IVPUSH Q8H 01/11/18 08:00 Tamsulosin [Flomax] 0.4 mg PO DAILY 01/11/18 09:41 Acetaminophen/HYDROcodone [[place] 325-10 MG] 1 tab PO Q4H PRN 01/11/18 09:45 Sulfamethoxazole/Trimethoprim [Septra DS] 1 tab PO BID 01/11/18 Breakfast Regular Diet [DIET] - Assessment Assessment:: Nephrolithiasis UTI - Plan Plan:: Will transition to oral pain medication (norco 10/325mg) and start bactrim DS twice daily. Will continue with the Normal saline. Will reevaluate pt. later this afternoon for possible discharge.
[2018-01-11] MEDS ORDERED: Aspirin 325 MG Tab.EC PO SCH ×2 (10:15→20:00)
[2018-01-11] MEDS ORDERED: Famotidine 20 MG Tab PO SCH (10:15)
[2018-01-11] MEDS: Sulfamethoxazole/Trimethoprim 800-160 MG Tab PO SCH ×2 (10:39→17:56)
[2018-01-11 17:12] VITALS: BP 141/82
[2018-01-11] MEDS ORDERED: atorvaSTATin 10 MG Tab PO SCH (20:00)
--- NOTE | 2018-01-12 05:06 | PCM.DCSUM1 ---
Discharge Summary - Hospital Course Free Text/Narrative:: Pt. is feeling better. She did pass several small stones that were strained. She has not required any further analgesia than the dilaudid she got on discharge. She is not longer experiencing any abdominal pain, N/V. - Discharge Data Discharge Date: 01/11/18 Discharge Disposition: Home, Self-Care 01 Condition: Fair - Discharge Diagnosis/Problem(s) (1) Kidney stone SNOMED Code(s): 90921779 ICD Code: N20.0 - CALCULUS OF KIDNEY Status: Acute Current Visit: Yes (2) UTI (urinary tract infection) SNOMED Code(s): 90505755 ICD Code: N39.0 - URINARY TRACT INFECTION, SITE NOT SPECIFIED Status: Acute Current Visit: Yes - Discharge Plan Home Medications: Home Meds Aspirin 325 mg PO DAILY 04/26/14 [History] Clindamycin Phosphate [Cleocin T 1% Lotion] 1 applic TOP BID 04/26/14 [History] Clobetasol [Clobetasol 0.05%] 1 applic TOP BID 04/26/14 [History] atorvaSTATin [Lipitor] 10 mg PO BEDTIME 04/17/17 [History] Famotidine [Pepcid] 20 mg DAILY 07/09/17 [History] Mupirocin Oint [Bactroban Oint] 22 gm TOP DAILY 07/09/17 [History] Sulfamethoxazole/Trimethoprim [Septra DS] 1 tab PO BID #0 tablet 01/11/18 [Rx] Patient Handouts: Kidney Stones Forms: ED Department Discharge Referrals: PCP,Unobtain [Primary Care Provider] - - General Info Functional Status: Reports: Pain Controlled - Review of Systems General: Reports: No Symptoms HEENT: Reports: No Symptoms Pulmonary: Reports: No Symptoms Cardiovascular: Reports: No Symptoms Gastrointestinal: Reports: No Symptoms Genitourinary: Reports: No Symptoms Musculoskeletal: Reports: No Symptoms Skin: Reports: No Symptoms Neurological: Reports: No Symptoms Psychiatric: Reports: No Symptoms - Patient Data Vitals - Most Recent: Last Vital Signs Temp 36.3 C 01/11/18 17:10 Pulse 52 L 01/11/18 17:10 Resp 20 01/11/18 17:10 BP 141/82 H 01/11/18 17:10 Pulse Ox 99 01/11/18 17:10 Weight - Most Recent: 99.79 kg I&O - Last 24 hours: Intake & Output 01/11/18 01/11/18 01/12/18 14:59 22:59 06:59 Intake Total 1445 800 Output Total 400 900 Balance 1045 -100 Med Orders - Current: Current Medications Hydrocodone Bitart/Acetaminophen ([place] 325-10 Mg) 1 tab PO Q4H PRN PRN Reason: Pain (moderate 4-6) Aspirin (Ecotrin) 325 mg PO BEDTIME [facility] Atorvastatin Calcium (Lipitor) 10 mg PO BEDTIME [facility] Famotidine (Pepcid) 20 mg PO DAILY [facility] Last Admin: 01/11/18 10:39 Dose: 20 mg Ondansetron HCl (Zofran) 4 mg IVPUSH Q8H [facility] Last Admin: 01/11/18 15:17 Dose: 4 mg Sodium Chloride (Saline Flush) 10 ml FLUSH ASDIRECTED PRN PRN Reason: Keep Vein Open Tamsulosin HCl (Flomax) 0.4 mg PO DAILY [facility] Last Admin: 01/11/18 08:04 Dose: 0.4 mg Trimethoprim/Sulfamethoxazole (Septra Ds) 1 tab PO BID [facility] Last Admin: 01/11/18 17:56 Dose: 1 tab Discontinued Medications Hydrocodone Bitart/Acetaminophen (Take Home: Acetam/Hydrocodon 325-5 Mg, 5 Pack ) 1 packet PO ONETIME ONE Stop: 01/11/18 05:10 Last Admin: 01/11/18 05:33 Dose: 1 packet Al Hydroxide/Mg Hydroxide (Gi Cocktail) 30 ml PO ONETIME ONE Stop: 01/11/18 02:21 Last Admin: 01/11/18 03:30 Dose: 30 ml Aspirin (Ecotrin) 325 mg PO DAILY [facility] Last Admin: 01/11/18 10:46 Dose: Not Given Hydromorphone HCl (Dilaudid) 1 mg IVPUSH ONETIME ONE Stop: 01/11/18 05:52 Last Admin: 01/11/18 06:05 Dose: 1 mg Sodium Chloride (Normal Saline) 1,000 mls @ 1,000 mls/hr IV .BOLUS ONE Stop: 01/11/18 06:50 Last Admin: 01/11/18 06:00 Dose: 1,000 mls/hr Sodium Chloride (Normal Saline) 1,000 mls @ 250 mls/hr IV ONETIME ONE Stop: 01/11/18 10:26 Last Admin: 01/11/18 07:30 Dose: 250 mls/hr Ondansetron HCl (Zofran) 4 mg IVPUSH ONETIME ONE Stop: 01/11/18 02:21 Last Admin: 01/11/18 03:26 Dose: 4 mg Tamsulosin HCl (Flomax) 0.4 mg PO ONETIME ONE Stop: 01/11/18 05:11 Last Admin: 01/11/18 05:34 Dose: 0.4 mg Trimethoprim/Sulfamethoxazole (Take Home: Sulfameth/Trimet 800-160mg, 2 Pack) 1 packet PO ONETIME ONE Stop: 01/11/18 05:10 Last Admin: 01/11/18 05:34 Dose: 1 packet - Exam General: Reports: Alert, Oriented HEENT: Reports: Pupils Equal, Pupils Reactive, EOMI, Mucous Membr. Moist/[place] Neck: Reports: Supple Lungs: Reports: Clear to Auscultation, Normal Respiratory Effort Cardiovascular: Reports: Regular Rate, Regular Rhythm GI/Abdominal Exam: Normal Bowel Sounds, Soft, Non-Tender, No Organomegaly, No Distention, No Abnormal Bruit, No Mass, Pelvis Stable (Female) Exam: Deferred Rectal (Female) Exam: Deferred Back Exam: Reports: Normal Inspection, Full Range of Motion Extremities: Normal Inspection, Normal Range of Motion, Non-Tender, No Pedal Edema, Normal Capillary Refill Skin: Reports: Warm, Dry, Intact Neurological: Reports: No New Focal Deficit Psy/Mental Status: Reports: Alert, Normal Affect, Normal Mood
== END 2018-01-11 18:15 | disposition home or self-care (01) ==
LOC: VM.ED 02:05 → VM.MS 05:49 → UNDOADMOB 05:50
PROVIDERS: ADMIT Physician Assistant; ATTEND Physician Assistant
DX: N13.6 Pyonephrosis (principal); N39.0 Urinary tract infection, site not specified; E78.00 Pure hypercholesterolemia, unspecified; K21.9 Gastro-esophageal reflux disease without esophagitis; E66.9 Obesity, unspecified; E55.9 Vitamin D deficiency, unspecified; Z79.82 Long term (current) use of aspirin; Z79.899 Other long term (current) drug therapy; Z88.5 Allergy status to narcotic agent; Z88.1 Allergy status to other antibiotic agents; Z88.0 Allergy status to penicillin; Z88.8 Allergy status to other drugs, medicaments and biological substances; Z91.048 Other nonmedicinal substance allergy status; Z86.010 Personal history of colon polyps; Z87.442 Personal history of urinary calculi; Z68.30 Body mass index [BMI] 30.0-30.9, adult
CPT/HCPCS: 36415; 74176; 80053; 81001; 83605; 84484; 85025; 85610; 86140; 96374; 96375; 96376; 99235; 99284-GF; 99285; A9270-GY; G0378; J1170; J2405; J7030

== ENCOUNTER 2019-01-07 12:43 | Emergency (ER) | payer MEDICARE, BC ==
[2019-01-07] MEDS ORDERED: Dexamethasone 4 MG/ML SDV IM ONE (12:47)
[2019-01-07] MEDS ORDERED: Albuterol/Ipratropium 3.0-0.5 MG/3 ML Neb Soln NEB ONE (12:47)
--- NOTE | 2019-01-07 13:00 | EDM.PDOC ---
ED HPI GENERAL MEDICAL PROBLEM - General Chief Complaint: Respiratory Problem Stated Complaint: BAD COUGH WEAK Time Seen by Provider: 01/07/19 12:43 Source of Information: Reports: Patient History Limitations: Reports: No Limitations - History of Present Illness INITIAL COMMENTS - FREE TEXT/NARRATIVE: Patient comes into the emergency department with complaint of severe cough, body aches and chest congestion. Patient states that her symptoms started approximately 2 days ago and slowly progressed over the 2 days. She states that she was up all night due to severe coughing, sore throat and body aches. She denies having a fever but does state she has body aches. She states that the cough has progressed and makes her gag and she does have some sputum production with this. She states that she is unable to lay flat or climbing stairs due to severe coughing attacks. She is getting exertional shortness of breath. However when she is at rest or sitting upright she does not have any shortness of breath. She has not taken anything for her cough. She states prior to that she was fairly healthy and had no major illnesses or injuries in the last 30 days. Onset: Gradual Severity: Moderate Improves with: Reports: None Worsens with: Reports: None Associated Symptoms: Reports: Cough, cough w sputum, Malaise - Related Data Allergies Allergy/AdvReac Type Severity Reaction Status Date / Time erythromycin base Allergy Rash Verified 03/18/18 23:50 [Erythromycin Base] Penicillins Allergy Rash Verified 03/18/18 23:50 simvastatin Allergy Rash Verified 03/18/18 23:50 codeine AdvReac Syncope Verified 03/18/18 23:50 metronidazole [From Flagyl] AdvReac Nausea Verified 03/18/18 23:50 Pham (Plants) Allergy Severe Shortness Uncoded 03/18/18 23:50 of Breath Home Meds: Home Meds Aspirin 325 mg PO DAILY 04/26/14 [History] Clindamycin Phosphate [Cleocin T 1% Lotion] 1 applic TOP ASDIRECTED 04/26/14 [ History] Clobetasol [Clobetasol 0.05%] 1 applic TOP ASDIRECTED 04/26/14 [History] atorvaSTATin [Lipitor] 10 mg PO BEDTIME 04/17/17 [History] Tamsulosin HCl [Flomax] 0.4 mg PO DAILY 12 Days #12 cap.er.24h 03/19/18 [Rx] Cholecalciferol (Vitamin D3) [Vitamin D3] 1,000 units PO DAILY 03/22/18 [History ] Hydrocodone/Acetaminophen [Hydrocodon-Acetaminophen 5-325] 1 each PO QID PRN # 30 tablet 03/24/18 [Rx] Benzonatate [Tessalon Perle] 100 mg PO TID PRN #10 capsule 01/07/19 [Rx] predniSONE 20 mg PO BID 4 Days #8 tab 01/07/19 [Rx] Past Medical History HEENT History: Reports: Cataract, Other (See Below) Other HEENT History: Aquired deformity of nose Cardiovascular History: Reports: High Cholesterol Respiratory History: Reports: Other (See Below) Other Respiratory History: Hospitalized twice for pneumonia Gastrointestinal History: Reports: Colon Polyp, GERD, Other (See Below) Other Gastrointestinal History: Abnormal Liver Function Genitourinary History: Reports: UTI, Recurrent, Other (See Below) Other Genitourinary History: Fibrocystic breast. History of kidney stones Other Musculoskeletal History: Bilateral knee pain Neurological History: Reports: Other (See Below) Other Neuro History: Paresthesia Psychiatric History: Reports: Other (See Below) Other Psychiatric History: High risk medication use Endocrine/Metabolic History: Reports: Obesity/BMI 30+, Vitamin D Deficiency, Other (See Below) Other Endocrine/Metabolic History: Hyperglycemia. Hirsutism. Elevated testosterone level in female Dermatologic History: Reports: Other (See Below) Other Dermatologic History: Intertrigo (overgrowth of yeast). Lichen planus - Past Surgical History HEENT Surgical History: Reports: Tonsillectomy GI Surgical History: Reports: Appendectomy, Cholecystectomy Female Surgical History: Reports: Breast Biopsy, Hysterectomy Musculoskeletal Surgical History: Reports: Carpal Tunnel Social & Family History - Caffeine Use Caffeine Use: Reports: Other Other Caffeine Use: Rarely drinks caffeine ED ROS GENERAL - Review of Systems Review Of Systems: See Below Constitutional: Reports: No Symptoms Respiratory: Reports: Shortness of Breath, Wheezing, Cough, Sputum Cardiovascular: Reports: No Symptoms Endocrine: Reports: No Symptoms GI/Abdominal: Reports: No Symptoms Musculoskeletal: Reports: No Symptoms Skin: Reports: No Symptoms Neurological: Reports: No Symptoms ED EXAM, GENERAL - Physical Exam Exam: See Below Exam Limited By: No Limitations General Appearance: Alert, WD/WN, No Apparent Distress Respiratory/Chest: Chest Non-Tender, Decreased Breath Sounds, Wheezing Cardiovascular: Normal Peripheral Pulses, Regular Rate, Rhythm GI/Abdominal: Normal Bowel Sounds, Soft, Non-Tender, No Distention Extremities: Normal Inspection, Normal Range of Motion, Non-Tender, No Pedal Edema, Normal Capillary Refill Neurological: Alert, Oriented, CN II-XII Intact Psychiatric: Normal Affect, Normal Mood Skin Exam: Warm, Dry, Intact, Normal Color Course - Orders/Labs/Meds Orders: Active Orders 24 hr Category Date Time Status RT Aerosol Therapy [RC] ASDIRECTED Care 01/07/19 12:47 Active Labs: Laboratory Tests 01/07/19 01/07/19 Range/Units 13:02 13:02 WBC 10.4 H (4.0-10.0) x10^3/uL RBC 4.58 (4.00-5.50) x10^6/uL Hgb 13.6 (12.0-16.0) g/dL Hct 41.4 (33.0-47.0) % MCV 90.4 D (78.0-93.0) fL MCH 29.7 (26.0-32.0) pg MCHC 32.9 (32.0-36.0) g/dL RDW Coeff of [place] 14.0 (10.0-15.0) % Plt Count 171 (130-400) x10^3/uL Neut % (Auto) 78.4 (50.0-80.0) % Lymph % (Auto) 10.5 L (25.0-50.0) % [place] % (Auto) 7.9 (2.0-11.0) % Eos % (Auto) 3.0 (0.0-4.0) % Baso % (Auto) 0.2 (0.2-1.2) % Sodium 139 (136-145) mmol/L Potassium 4.0 (3.5-5.1) mmol/L Chloride 104 (98-107) mmol/L Carbon Dioxide 25 (21-32) mmol/L Anion Gap 14.0 (10-20) mmol/L BUN 8 (7-18) mg/dL Creatinine 0.9 (0.55-1.02) mg/dL Est Cr Clr Drug Dosing TNP Estimated GFR (MDRD) > 60 Glucose 127 H (74-106) mg/dL Calcium 8.8 (8.5-10.1) mg/dL Corrected Calcium 9.36 (8.5-10.1) mg/dL Total Bilirubin 1.0 (0.2-1.0) mg/dL AST 36 (15-37) U/L ALT 58 (14-59) U/L Alkaline Phosphatase 94 (46-116) U/L Total Protein 7.0 (6.4-8.2) g/dL Albumin 3.3 L (3.4-5.0) g/dL Globulin 3.7 Albumin/Globulin Ratio 0.89 Meds: Medications Discontinued Medications Generic Name Dose Route Start Last Admin Trade Name Freq PRN Reason Stop Dose Admin Albuterol/Ipratropium 3 ml 01/07/19 12:47 01/07/19 12:57 Duoneb 3.0-0.5 Mg/3 Ml NEB 01/07/19 12:48 3 ml ONETIME ONE Administration Dexamethasone 8 mg 01/07/19 12:47 01/07/19 12:56 Dexamethasone IM 01/07/19 12:48 8 mg ONETIME ONE Administration Departure - Departure Time of Disposition: 14:20 Disposition: Home, Self-Care 01 Condition: Good Clinical Impression: Acute bronchiolitis Qualifiers: Bronchiolitis organism: unspecified organism Qualified Code(s): J21.9 - Acute bronchiolitis, unspecified - Discharge Information *PRESCRIPTION DRUG MONITORING PROGRAM REVIEWED*: Not Applicable *COPY OF PRESCRIPTION DRUG MONITORING REPORT IN PATIENT MOLLY: Not Applicable Instructions: Upper Respiratory Infection, Adult, [id number], Benzonatate capsules, Prednisone tablets Forms: ED Department Discharge Additional Instructions: 1. rest 2. increase your water intake 3. Tessalon Perles were given to help with aggressive, 4. Prednisone was provided to help with the bronchial agitation 5. Currently your symptoms are looking viral in nature. It is not recommended that we provide antibiotic use. However if this cough progresses and worsens in the course of the next 5-7 days or fever increases to 102. It is recommended that he follow up with her PCP immediately for further investigation. 6. X-rays and labs completed today emergency department showed no acute findings or infectious etiologies 7. It is advisable that you sleep and upright position/recliner for the course of one to 2 nights to help with the severe cough 8. Humidification is also recommended in the home 9. Follow up with PCP as needed or symptoms worsen 10. Activity and diet as tolerated 11. Call with any questions or concerns - My Orders Last 24 Hours: My Active Orders 01/07/19 12:47 RT Aerosol Therapy [RC] ASDIRECTED - Assessment/Plan Last 24 Hours: My Active Orders 01/07/19 12:47 RT Aerosol Therapy [RC] ASDIRECTED Assessment:: #1 bronchiolitis Plan: 1. Chest x-ray completed in the emergency department. Results reviewed with patient. no acute findings noted 2. Labs completed in the ER. Results reviewed with patient. No acute findings noted 3. DuoNeb provided to the patient emergency department for comfort and support. 4. Dexamethasone IM provided to the patient emergency department 5. Take all medications and scripts provided for prednisone and Tessalon Perles to help with the severe, 6. Education provided to the patient regarding follow-up care, activity, diet, medication management, and what to do with worsening symptoms 7. All questions and concerns addressed prior to discharge
[2019-01-07 13:28] LABS: CHLORIDE,CL 104 mmol/L (98-107); SODIUM,NA 139 mmol/L (136-145)
--- NOTE | 2019-01-07 13:47 | CR ---
[id number] RAD/RAD Chest PA And Lateral EXAM: RAD Chest PA And Lateral CLINICAL DATA: COUGH COMPARISON: CORRELATION IS MADE WITH THE EXAM OF APRIL 17, 2017. FINDINGS: The lungs are clear. The cardiomediastinal contour is prominent but stable. There are old left rib fractures. IMPRESSION: NO ACUTE PROCESS. Doe Ardon MD 01/07/19 [id number] Thank you for allowing us to participate in the care of your patient.
[2019-01-07] MEDS ORDERED: Take Home: predniSONE 20 MG, 2 Tab Pack PO ONE (14:17)
[2019-01-07] MEDS ORDERED: Benzonatate 100 MG Cap ONE ×2 (14:29→14:39)
[2019-01-07 15:33] VITALS: BP 134/60
== END 2019-01-07 14:30 | disposition home or self-care (01) ==
LOC: VM.ED 12:43
DX: J21.9 Acute bronchiolitis, unspecified (principal); E78.00 Pure hypercholesterolemia, unspecified; K21.9 Gastro-esophageal reflux disease without esophagitis; Z88.1 Allergy status to other antibiotic agents; Z88.0 Allergy status to penicillin; Z88.8 Allergy status to other drugs, medicaments and biological substances; Z91.09 Other allergy status, other than to drugs and biological substances; Z88.2 Allergy status to sulfonamides; Z79.899 Other long term (current) drug therapy
CPT/HCPCS: 36415; 71046; 80053; 85025; 87804; 94640; 96372; 99284; A9270; J1100; J7620-GY

== ENCOUNTER 2020-02-20 06:27 | Day surgery (SDC) | payer MEDICARE, BC, OTHER ==
[2020-02-20] MEDS ORDERED: Lactated Ringers 1,000 ML IV SCH (07:00)
[2020-02-20] MEDS ORDERED: fentaNYL 100 MCG/2 ML SDV ONE (08:31)
[2020-02-20] MEDS ORDERED: Propofol 200 MG/20 ML SDV ONE ×2 (08:31→09:29)
[2020-02-20 10:14] VITALS: BP 109/54; PULSE 45
--- NOTE | 2020-02-20 13:25 | OR ---
PREOPERATIVE DIAGNOSIS: Personal history of colon polyps. POSTOPERATIVE DIAGNOSIS: Personal history of colon polyps. PROCEDURE PERFORMED: Total flexible colonoscopy with multiple biopsies. ANESTHESIA: MAC anesthesia. COMPLICATIONS: None. BLOOD LOSS: Minimal. FINDINGS: 1. Cecal polyp x2, 3 mm, 8 mm, hot snare. 2. Hepatic flexure polyps x2, 2 mm, cold forceps. 3. Transverse colon polyp, 1 mm, cold forceps. 4. Sigmoid colon polyp, 4 mm, hot snare. 5. Sigmoid diverticulosis. START TIME: 919. CECUM TIME: 925. STOP TIME: 948. BOWEL PREP: [place] class 3. INDICATION FOR PROCEDURE: Ms. Wilkerson is a 74-year-old female who has a history of colon polyps. Her last scope was 5 years ago at which point she did have some polyps. She denies family history of colon cancer. She has never personally had colon cancer. She denies any changes in her bowel function. She has no bloody or dark black stools. DETAILS OF PROCEDURE: Informed consent was obtained. The patient was placed in left lateral decubitus position in the procedure room. MAC anesthesia was induced by Anesthesia colleagues. The endoscope with an Endocuff device was introduced into the rectum and advanced all the way to the cecum. The appendiceal orifice was photographed. The endoscope was then slowly withdrawn. No pathology was identified except for what is mentioned in the above findings section. A retroflexed view was obtained. The endoscope was then removed. The patient was woken from MAC anesthesia by Anesthesia colleagues without incident. She tolerated the procedure well. PATHOLOGY: A) Colon, cecal polyps Fragments of tubular adenoma Fragments of serrated adenoma B) Colon, hepatic flexure, polyp Tubular adenoma C) Colon, transverse, polyp Tubular adenoma D) Colon, sigmoid, polyp Tubular adenoma Recommended repeat screening colonoscopy in 3 years. RKM: 02/20/2020 09:55:17 MODL: 02/20/2020 13:02:42 /[id number] TODD
--- NOTE | 2020-02-28 10:50 | LETTER ---
02/27/2020 RE: BEBETO WILKERSON : 1945 Beb[place] Wilkerson [address], [address] [place] [id number] Dear Ms. Wilkerson: I am writing to you to inform you of the pathology results from your recent colonoscopy. You had several polyps that are considered precancerous, which is why we removed them. There was no evidence of cancer in any of your biopsy results. You will need another screening colonoscopy in 3 years. Warmest regards,
== END 2020-02-20 14:54 | disposition home or self-care (01) ==
LOC: VM.SDS 06:27
PROVIDERS: ATTEND Student in an Organized Health Care Education/Training Program
DX: Z12.11 Encounter for screening for malignant neoplasm of colon (principal); D12.0 Benign neoplasm of cecum; D12.5 Benign neoplasm of sigmoid colon; D12.3 Benign neoplasm of transverse colon; K57.30 Diverticulosis of large intestine without perforation or abscess without bleeding; E11.9 Type 2 diabetes mellitus without complications; G31.84 Mild cognitive impairment of uncertain or unknown etiology; E78.00 Pure hypercholesterolemia, unspecified; K21.9 Gastro-esophageal reflux disease without esophagitis; N20.0 Calculus of kidney; M25.562 Pain in left knee; M25.561 Pain in right knee; E66.9 Obesity, unspecified; L30.4 Erythema intertrigo; E55.9 Vitamin D deficiency, unspecified; L43.9 Lichen planus, unspecified; N95.2 Postmenopausal atrophic vaginitis; Z11.59 Encounter for screening for other viral diseases; Z86.010 Personal history of colon polyps; Z98.890 Other specified postprocedural states; Z79.899 Other long term (current) drug therapy; Z88.0 Allergy status to penicillin; Z88.5 Allergy status to narcotic agent; Z88.8 Allergy status to other drugs, medicaments and biological substances; Z91.012 Allergy to eggs; Z68.38 Body mass index [BMI] 38.0-38.9, adult
CPT/HCPCS: 00811; 45380; 45385; 88305; J2704; J3010; J7120; U0002; 45384

== ENCOUNTER 2021-03-29 14:38 | Emergency (ER) | payer MEDICARE, OTHER | END 2021-03-29 15:15 | disposition home or self-care (01) | LOC: VM.ED 14:38 | DX: Z53.21 Procedure and treatment not carried out due to patient leaving prior to being seen by health care provider (principal) ==

== ENCOUNTER 2022-03-08 02:05 | Emergency (ER) | payer MEDICARE, OTHER ==
[2022-03-08 02:31] VITALS: BP 152/77; PULSE 56
[2022-03-08 03:01] LABS: CHLORIDE,CL 102 mmol/L (98-107); SODIUM,NA 137 mmol/L (136-145)
[2022-03-08 03:03] LABS: ANION GAP 9.7 mmol/L (5-15); ESTIMATED GFR 58 mL/min (>=60)
[2022-03-08 03:19] LABS: PTT,PARTIAL THROMBOPLSTIN TIME 23.4 SEC (20.5-30.9)
[2022-03-08] MEDS ORDERED: Sodium Chloride 0.9% 10 ML Syringe FLUSH PRN (03:27)
[2022-03-08] MEDS ORDERED: Iopamidol 755 Mg/ML 100 ML Bottle IVPUSH ONE (03:48)
== END 2022-03-08 06:31 | disposition home or self-care (01) ==
LOC: VM.ED 02:05
DX: R07.89 Other chest pain (principal); E78.00 Pure hypercholesterolemia, unspecified; E11.65 Type 2 diabetes mellitus with hyperglycemia; E66.9 Obesity, unspecified; Z68.36 Body mass index [BMI] 36.0-36.9, adult; Z88.1 Allergy status to other antibiotic agents; Z88.0 Allergy status to penicillin; Z88.8 Allergy status to other drugs, medicaments and biological substances; Z88.5 Allergy status to narcotic agent; Z91.012 Allergy to eggs; Z91.048 Other nonmedicinal substance allergy status
CPT/HCPCS: 36415; 71045; 71275; 80053; 83605; 83735; 84100; 84484; 85025; 85379; 85610; 85730; 86140; 99285; Q9967

== ENCOUNTER 2022-08-06 17:05 | Emergency (ER) | payer MEDICARE, OTHER ==
[2022-08-06 19:06] VITALS: BP 164/83; PULSE 82
== END 2022-08-06 17:09 | disposition home or self-care (01) ==
LOC: VM.ED 17:05
DX: B02.9 Zoster without complications (principal); Z88.1 Allergy status to other antibiotic agents; Z88.0 Allergy status to penicillin; Z88.5 Allergy status to narcotic agent; Z91.012 Allergy to eggs; Z91.048 Other nonmedicinal substance allergy status; Z79.899 Other long term (current) drug therapy; Z90.49 Acquired absence of other specified parts of digestive tract; Z90.710 Acquired absence of both cervix and uterus
CPT/HCPCS: 99282; 99283

== ENCOUNTER 2022-09-20 11:21 | Inpatient (IN) | payer MEDICARE, OTHER ==
[2022-09-20] MEDS ORDERED: oxyCODONE 5 MG Tab PO PRN (15:01)
[2022-09-20] MEDS ORDERED: Polyethylene Glycol 3350 Powder 17 GM Packet PO PRN (15:01)
[2022-09-20] MEDS: atorvaSTATin 10 MG Tab PO SCH (20:59)
[2022-09-20] MEDS: Docusate Sodium 100 MG Cap PO SCH (20:59)
[2022-09-20] MEDS: Apixaban 2.5 MG Tab PO SCH (20:59)
[2022-09-20] MEDS: Acetaminophen 500 MG Tab PO PRN (21:10)
[2022-09-21] MEDS: Apixaban 2.5 MG Tab PO SCH ×2 (09:49→20:07)
[2022-09-21] MEDS: Docusate Sodium 100 MG Cap PO SCH ×2 (09:49→20:07)
[2022-09-21] MEDS: Hydrochlorothiazide 12.5 MG Cap PO SCH (09:49)
[2022-09-21] MEDS: Cholecalciferol (Vitamin D3) 25 MCG Tab PO SCH (09:49)
[2022-09-21] MEDS: Acetaminophen 500 MG Tab PO PRN (20:05)
[2022-09-21] MEDS: atorvaSTATin 10 MG Tab PO SCH (20:05)
[2022-09-21] MEDS: Calcium Carbonate 750 MG Tab.Chew PO PRN (23:11)
[2022-09-22] MEDS: Calcium Carbonate 750 MG Tab.Chew PO PRN ×2 (04:37→21:38)
[2022-09-22] MEDS: Acetaminophen 500 MG Tab PO PRN (05:39)
[2022-09-22] MEDS: Docusate Sodium 100 MG Cap PO SCH ×2 (08:34→20:01)
[2022-09-22] MEDS: Hydrochlorothiazide 12.5 MG Cap PO SCH (08:34)
[2022-09-22] MEDS: Cholecalciferol (Vitamin D3) 25 MCG Tab PO SCH (08:34)
[2022-09-22] MEDS: Apixaban 2.5 MG Tab PO SCH ×2 (08:34→20:01)
[2022-09-22] MEDS: atorvaSTATin 10 MG Tab PO SCH (20:01)
[2022-09-22] MEDS ORDERED: Famotidine 20 MG Tab PO PRN (23:04)
[2022-09-22] MEDS: Famotidine 20 MG Tab PO PRN (23:15)
[2022-09-23] MEDS: Cholecalciferol (Vitamin D3) 25 MCG Tab PO SCH (08:09)
[2022-09-23] MEDS: Hydrochlorothiazide 12.5 MG Cap PO SCH (08:09)
[2022-09-23] MEDS: Apixaban 2.5 MG Tab PO SCH ×2 (08:09→20:06)
[2022-09-23] MEDS: Docusate Sodium 100 MG Cap PO SCH ×2 (08:09→20:06)
[2022-09-23] MEDS: atorvaSTATin 10 MG Tab PO SCH (20:05)
[2022-09-24] MEDS: Hydrochlorothiazide 12.5 MG Cap PO SCH (08:09)
[2022-09-24] MEDS: Apixaban 2.5 MG Tab PO SCH ×2 (08:11→20:15)
[2022-09-24] MEDS: Cholecalciferol (Vitamin D3) 25 MCG Tab PO SCH (08:11)
[2022-09-24] MEDS: Docusate Sodium 100 MG Cap PO SCH ×2 (10:24→20:16)
[2022-09-24] MEDS: Acetaminophen 500 MG Tab PO PRN ×2 (13:35→20:11)
[2022-09-24] MEDS: atorvaSTATin 10 MG Tab PO SCH (20:14)
[2022-09-24] MEDS: Famotidine 20 MG Tab PO PRN (22:45)
[2022-09-25] MEDS: Calcium Carbonate 750 MG Tab.Chew PO PRN (04:53)
[2022-09-25] MEDS: Omeprazole 20 MG Cap.CR PO SCH (08:55)
[2022-09-25] MEDS: Simethicone 80 MG Tab.Chew PO PRN (08:57)
[2022-09-25] MEDS: Cholecalciferol (Vitamin D3) 25 MCG Tab PO SCH (08:58)
[2022-09-25] MEDS: Hydrochlorothiazide 12.5 MG Cap PO SCH (08:58)
[2022-09-25] MEDS: Apixaban 2.5 MG Tab PO SCH ×2 (08:59→20:00)
[2022-09-25] MEDS: Docusate Sodium 100 MG Cap PO SCH ×2 (10:33→20:03)
[2022-09-25] MEDS: Acetaminophen 500 MG Tab PO PRN (20:01)
[2022-09-25] MEDS: atorvaSTATin 10 MG Tab PO SCH (20:01)
[2022-09-26] MEDS: Omeprazole 20 MG Cap.CR PO SCH ×2 (07:49→11:37)
[2022-09-26] MEDS: Cholecalciferol (Vitamin D3) 25 MCG Tab PO SCH ×2 (07:50→11:37)
[2022-09-26] MEDS: Hydrochlorothiazide 12.5 MG Cap PO SCH ×2 (07:50→11:36)
[2022-09-26] MEDS: Apixaban 2.5 MG Tab PO SCH ×3 (07:50→20:15)
[2022-09-26] MEDS: Docusate Sodium 100 MG Cap PO SCH ×2 (11:36→20:15)
[2022-09-26] MEDS: Acetaminophen 500 MG Tab PO PRN ×2 (14:15→20:14)
[2022-09-26] MEDS: atorvaSTATin 10 MG Tab PO SCH (20:15)
[2022-09-27] MEDS: Simethicone 80 MG Tab.Chew PO PRN (00:35)
[2022-09-27] MEDS: Famotidine 20 MG Tab PO PRN ×2 (00:36→20:30)
[2022-09-27] MEDS: Cholecalciferol (Vitamin D3) 25 MCG Tab PO SCH (09:36)
[2022-09-27] MEDS: Hydrochlorothiazide 12.5 MG Cap PO SCH (09:36)
[2022-09-27] MEDS: Apixaban 2.5 MG Tab PO SCH ×2 (09:36→20:30)
[2022-09-27] MEDS: Omeprazole 20 MG Cap.CR PO SCH (09:36)
[2022-09-27] MEDS: Docusate Sodium 100 MG Cap PO SCH ×2 (09:37→20:33)
[2022-09-27] MEDS: Acetaminophen 500 MG Tab PO PRN (20:30)
[2022-09-27] MEDS: atorvaSTATin 10 MG Tab PO SCH (20:30)
[2022-09-28] MEDS: Hydrochlorothiazide 12.5 MG Cap PO SCH (08:04)
[2022-09-28] MEDS: Apixaban 2.5 MG Tab PO SCH ×2 (08:04→20:12)
[2022-09-28] MEDS: Cholecalciferol (Vitamin D3) 25 MCG Tab PO SCH (08:04)
[2022-09-28] MEDS: Omeprazole 20 MG Cap.CR PO SCH (08:04)
[2022-09-28] MEDS: Docusate Sodium 100 MG Cap PO SCH ×3 (08:04→20:16)
[2022-09-28] MEDS: Acetaminophen 500 MG Tab PO PRN ×2 (14:41→20:12)
[2022-09-28] MEDS: atorvaSTATin 10 MG Tab PO SCH (20:11)
[2022-09-28] MEDS: Famotidine 20 MG Tab PO PRN (20:14)
[2022-09-29] MEDS: Simethicone 80 MG Tab.Chew PO PRN ×2 (00:31→20:01)
[2022-09-29] MEDS: Cholecalciferol (Vitamin D3) 25 MCG Tab PO SCH (08:04)
[2022-09-29] MEDS: Apixaban 2.5 MG Tab PO SCH ×2 (08:04→20:01)
[2022-09-29] MEDS: Omeprazole 20 MG Cap.CR PO SCH (08:04)
[2022-09-29] MEDS: Docusate Sodium 100 MG Cap PO SCH ×2 (08:05→20:03)
[2022-09-29] MEDS: Hydrochlorothiazide 12.5 MG Cap PO SCH (08:05)
[2022-09-29] MEDS: atorvaSTATin 10 MG Tab PO SCH (20:00)
[2022-09-29] MEDS: Acetaminophen 500 MG Tab PO PRN (20:01)
[2022-09-30] MEDS: Hydrochlorothiazide 12.5 MG Cap PO SCH (08:56)
[2022-09-30] MEDS: Apixaban 2.5 MG Tab PO SCH ×2 (08:56→20:04)
[2022-09-30] MEDS: Omeprazole 20 MG Cap.CR PO SCH (08:56)
[2022-09-30] MEDS: Cholecalciferol (Vitamin D3) 25 MCG Tab PO SCH (08:56)
[2022-09-30] MEDS: Docusate Sodium 100 MG Cap PO SCH ×2 (08:57→20:05)
[2022-09-30] MEDS: Calcium Carbonate 750 MG Tab.Chew PO PRN (12:12)
[2022-09-30] MEDS: Simethicone 80 MG Tab.Chew PO PRN (20:04)
[2022-09-30] MEDS: Acetaminophen 500 MG Tab PO PRN (20:04)
[2022-09-30] MEDS: atorvaSTATin 10 MG Tab PO SCH (20:04)
[2022-10-01] MEDS: Cholecalciferol (Vitamin D3) 25 MCG Tab PO SCH (08:34)
[2022-10-01] MEDS: Hydrochlorothiazide 12.5 MG Cap PO SCH (08:34)
[2022-10-01] MEDS: Omeprazole 20 MG Cap.CR PO SCH (08:34)
[2022-10-01] MEDS: Apixaban 2.5 MG Tab PO SCH ×2 (08:34→20:08)
[2022-10-01] MEDS: Docusate Sodium 100 MG Cap PO SCH ×2 (08:36→20:10)
[2022-10-01] MEDS: Acetaminophen 500 MG Tab PO PRN (20:08)
[2022-10-01] MEDS: atorvaSTATin 10 MG Tab PO SCH (20:08)
[2022-10-02] MEDS: Hydrochlorothiazide 12.5 MG Cap PO SCH (08:21)
[2022-10-02] MEDS: Docusate Sodium 100 MG Cap PO SCH ×2 (08:22→20:09)
[2022-10-02] MEDS: Omeprazole 20 MG Cap.CR PO SCH (08:22)
[2022-10-02] MEDS: Apixaban 2.5 MG Tab PO SCH ×2 (08:22→20:07)
[2022-10-02] MEDS: Cholecalciferol (Vitamin D3) 25 MCG Tab PO SCH (08:22)
[2022-10-02] MEDS: Famotidine 20 MG Tab PO PRN (14:46)
[2022-10-02] MEDS: Calcium Carbonate 750 MG Tab.Chew PO PRN (15:55)
[2022-10-02] MEDS: Acetaminophen 500 MG Tab PO PRN (20:07)
[2022-10-02] MEDS: atorvaSTATin 10 MG Tab PO SCH (20:07)
[2022-10-03] MEDS: Calcium Carbonate 750 MG Tab.Chew PO PRN ×3 (01:20→22:21)
[2022-10-03] MEDS: Omeprazole 20 MG Cap.CR PO SCH (08:15)
[2022-10-03] MEDS: Docusate Sodium 100 MG Cap PO SCH ×2 (08:16→20:01)
[2022-10-03] MEDS: Cholecalciferol (Vitamin D3) 25 MCG Tab PO SCH (08:16)
[2022-10-03] MEDS: Apixaban 2.5 MG Tab PO SCH ×2 (08:16→20:01)
[2022-10-03] MEDS: Hydrochlorothiazide 12.5 MG Cap PO SCH (08:16)
[2022-10-03] MEDS: Acetaminophen 500 MG Tab PO PRN ×2 (08:20→20:01)
[2022-10-03] MEDS: atorvaSTATin 10 MG Tab PO SCH (20:01)
[2022-10-04] MEDS: Hydrochlorothiazide 12.5 MG Cap PO SCH (08:00)
[2022-10-04] MEDS: Docusate Sodium 100 MG Cap PO SCH ×2 (08:00→20:22)
[2022-10-04] MEDS: Apixaban 2.5 MG Tab PO SCH ×2 (08:00→20:20)
[2022-10-04] MEDS: Omeprazole 20 MG Cap.CR PO SCH (08:01)
[2022-10-04] MEDS: Cholecalciferol (Vitamin D3) 25 MCG Tab PO SCH (08:01)
[2022-10-04] MEDS: Acetaminophen 500 MG Tab PO PRN (08:57)
[2022-10-04] MEDS: atorvaSTATin 10 MG Tab PO SCH (20:20)
[2022-10-05] MEDS: Hydrochlorothiazide 12.5 MG Cap PO SCH (08:14)
[2022-10-05] MEDS: Omeprazole 20 MG Cap.CR PO SCH (08:14)
[2022-10-05] MEDS: Apixaban 2.5 MG Tab PO SCH ×2 (08:14→20:06)
[2022-10-05] MEDS: Cholecalciferol (Vitamin D3) 25 MCG Tab PO SCH (08:14)
[2022-10-05] MEDS: Docusate Sodium 100 MG Cap PO SCH ×2 (08:53→20:10)
[2022-10-05] MEDS: Miconazole 2% Top Powder 45 GM Container TOP SCH ×2 (16:15→20:10)
[2022-10-05] MEDS: Acetaminophen 500 MG Tab PO PRN (20:06)
[2022-10-05] MEDS: atorvaSTATin 10 MG Tab PO SCH (20:06)
[2022-10-06] MEDS: Acetaminophen 500 MG Tab PO PRN (03:19)
[2022-10-06 05:33] VITALS: BP 149/69; PULSE 66
[2022-10-06] MEDS: Apixaban 2.5 MG Tab PO SCH (08:58)
[2022-10-06] MEDS: Omeprazole 20 MG Cap.CR PO SCH (08:59)
[2022-10-06] MEDS: Hydrochlorothiazide 12.5 MG Cap PO SCH (08:59)
[2022-10-06] MEDS: Cholecalciferol (Vitamin D3) 25 MCG Tab PO SCH (08:59)
[2022-10-06] MEDS: Docusate Sodium 100 MG Cap PO SCH (08:59)
[2022-10-06] MEDS: Miconazole 2% Top Powder 45 GM Container TOP SCH (09:00)
== END 2022-10-06 13:30 | disposition home health service (06) | DRG 948 ==
LOC: UNDOADMIN 13:55 → VM.MS 13:55
PROVIDERS: ADMIT Family Medicine; ATTEND Family Medicine
DX: R53.81 Other malaise (principal); D68.51 Activated protein C resistance; Z96.642 Presence of left artificial hip joint; I95.1 Orthostatic hypotension; D64.9 Anemia, unspecified; K21.9 Gastro-esophageal reflux disease without esophagitis; E78.00 Pure hypercholesterolemia, unspecified; E66.09 Other obesity due to excess calories; R10.13 Epigastric pain; K59.00 Constipation, unspecified; E78.5 Hyperlipidemia, unspecified; E11.9 Type 2 diabetes mellitus without complications; M54.9 Dorsalgia, unspecified; E55.9 Vitamin D deficiency, unspecified; Z87.442 Personal history of urinary calculi; Z85.3 Personal history of malignant neoplasm of breast; Z68.35 Body mass index [BMI] 35.0-35.9, adult; Z88.0 Allergy status to penicillin; Z91.012 Allergy to eggs; Z88.5 Allergy status to narcotic agent; Z88.1 Allergy status to other antibiotic agents; Z79.82 Long term (current) use of aspirin; Z79.899 Other long term (current) drug therapy; Z90.49 Acquired absence of other specified parts of digestive tract
CPT/HCPCS: 36415; 85025; 97110-GP; 97116-GP; 97161-GP; 97165-GO; 97530-GO; 97530-GP; 97535-GO; A9270-GY

== ENCOUNTER 2022-10-17 17:30 | Emergency (ER) | payer MEDICARE, OTHER ==
[2022-10-17] MEDS ORDERED: Sodium Chloride 0.9% 10 ML Syringe FLUSH PRN ×2 (17:35→17:36)
[2022-10-17] MEDS ORDERED: Ondansetron 4 MG/2 ML SDV IVPUSH ONE (17:37)
[2022-10-17] MEDS ORDERED: Sodium Chloride 0.9% 1,000 ML IV SCH (17:45)
[2022-10-17 18:07] LABS: CHLORIDE,CL 102 mmol/L (98-107); SODIUM,NA 139 mmol/L (136-145)
[2022-10-17 18:11] LABS: ESTIMATED GFR 58 mL/min (>=60)
[2022-10-17 18:19] VITALS: BP 153/81; PULSE 78
[2022-10-17 18:20] LABS: PTT,PARTIAL THROMBOPLSTIN TIME 24.3 SEC (20.5-30.9)
[2022-10-17 18:51] LABS: CORONAVIRUS COVID-19 NAA NEGATIVE (NEGATIVE); RESPIRATORY SYNCYTIAL VIR NAA NEGATIVE (NEGATIVE)
[2022-10-17] MEDS ORDERED: Dicyclomine 20 MG/2 ML SDV IM ONE (18:51)
[2022-10-17] MEDS ORDERED: cefTRIAXone 2 GM Vial IVPUSH ONE (18:57)
[2022-10-17] MEDS ORDERED: Take Home: Ondansetron 4 MG Tab.DIS, 5 Tab Pack PO ONE (19:50)
== END 2022-10-17 19:58 | disposition home or self-care (01) ==
LOC: VM.ED 17:30
DX: N39.0 Urinary tract infection, site not specified (principal); E86.0 Dehydration; R11.0 Nausea; R19.7 Diarrhea, unspecified; E78.00 Pure hypercholesterolemia, unspecified; E11.9 Type 2 diabetes mellitus without complications; K21.9 Gastro-esophageal reflux disease without esophagitis; E66.9 Obesity, unspecified; Z68.30 Body mass index [BMI] 30.0-30.9, adult; Z88.1 Allergy status to other antibiotic agents; Z88.5 Allergy status to narcotic agent; Z91.012 Allergy to eggs; Z88.8 Allergy status to other drugs, medicaments and biological substances; Z88.0 Allergy status to penicillin; Z79.899 Other long term (current) drug therapy; Z79.01 Long term (current) use of anticoagulants; Z20.822 Contact with and (suspected) exposure to COVID-19
CPT/HCPCS: 0241U; 80053; 81001; 82150; 83605; 83690; 83735; 84100; 85025; 85610; 85730; 86140; 87086; 96361; 96372; 96374; 96375; 99284; 99284-25; J0500; J0696; J2405; J7030

== ENCOUNTER 2022-10-19 15:33 | Emergency (ER) | payer MEDICARE, OTHER ==
[2022-10-19] MEDS ORDERED: Sodium Chloride 0.9% 10 ML Syringe FLUSH PRN (15:35)
[2022-10-19 15:54] VITALS: BP 148/82; PULSE 81
[2022-10-19 16:31] LABS: PTT,PARTIAL THROMBOPLSTIN TIME 23.2 SEC (20.5-30.9)
[2022-10-19] MEDS ORDERED: Prochlorperazine 10 MG/2 ML SDV IV ONE (16:34)
[2022-10-19 16:42] LABS: CHLORIDE,CL 101 mmol/L (98-107); SODIUM,NA 139 mmol/L (136-145)
[2022-10-19] MEDS ORDERED: Iopamidol 612 MG/ML 100 ML Bottle IVPUSH ONE (16:43)
[2022-10-19 16:44] LABS: ESTIMATED GFR 51 mL/min (>=60)
[2022-10-19 17:08] LABS: CORONAVIRUS COVID-19 NAA NEGATIVE (NEGATIVE); RESPIRATORY SYNCYTIAL VIR NAA NEGATIVE (NEGATIVE)
[2022-10-19] MEDS ORDERED: Metoclopramide 10 MG/2 ML SDV IVPUSH ONE (18:28)
[2022-10-19] MEDS ORDERED: Lactated Ringers 1,000 ML IV ONE (18:29)
[2022-10-19] MEDS ORDERED: cefTRIAXone 1 GM Vial IVPUSH SCH (18:45)
== END 2022-10-19 19:45 | disposition short-term general hospital (02) ==
LOC: VM.ED 15:33 → SUPCPDRO 15:33 → VM.ED 19:45
DX: N39.0 Urinary tract infection, site not specified (principal); R11.2 Nausea with vomiting, unspecified; E78.00 Pure hypercholesterolemia, unspecified; K21.9 Gastro-esophageal reflux disease without esophagitis; E11.9 Type 2 diabetes mellitus without complications; E66.9 Obesity, unspecified; Z68.34 Body mass index [BMI] 34.0-34.9, adult; Z91.012 Allergy to eggs; Z88.1 Allergy status to other antibiotic agents; Z88.0 Allergy status to penicillin; Z88.8 Allergy status to other drugs, medicaments and biological substances; Z88.5 Allergy status to narcotic agent; Z91.048 Other nonmedicinal substance allergy status; Z79.01 Long term (current) use of anticoagulants; Z79.899 Other long term (current) drug therapy; Z20.822 Contact with and (suspected) exposure to COVID-19
CPT/HCPCS: 0241U; 36415; 71045; 74019; 74177; 80053; 83605; 83735; 83880; 84100; 84484; 85025; 85610; 85730; 86140; 87040; 93005; 96361; 96374; 96375; 99284; 99285-25; J0696; J0780; J2765; J7120; Q9967

== ENCOUNTER 2023-05-12 06:33 | Day surgery (SDC) | payer MEDICARE, OTHER ==
[2023-05-12] MEDS ORDERED: Lactated Ringers 1,000 ML IV SCH (07:00)
[2023-05-12] MEDS ORDERED: fentaNYL 100 MCG/2 ML SDV ONE ×2 (08:08→08:52)
[2023-05-12] MEDS ORDERED: Propofol 200 MG/20 ML SDV ONE ×2 (08:08→08:52)
[2023-05-12 10:06] VITALS: BP 118/54; PULSE 50
== END 2023-05-12 11:11 | disposition home or self-care (01) ==
LOC: VM.SDS 06:33
PROVIDERS: ATTEND Family Medicine
DX: D12.3 Benign neoplasm of transverse colon (principal); K57.30 Diverticulosis of large intestine without perforation or abscess without bleeding; D68.51 Activated protein C resistance; E78.00 Pure hypercholesterolemia, unspecified; E66.9 Obesity, unspecified; E55.9 Vitamin D deficiency, unspecified; E11.9 Type 2 diabetes mellitus without complications; K21.9 Gastro-esophageal reflux disease without esophagitis; G89.29 Other chronic pain; M25.561 Pain in right knee; M25.562 Pain in left knee; G30.9 Alzheimer's disease, unspecified; F02.B0 Dementia in other diseases classified elsewhere, moderate, without behavioral disturbance, psychotic disturbance, mood disturbance, and anxiety; Z79.82 Long term (current) use of aspirin; Z79.899 Other long term (current) drug therapy; Z88.0 Allergy status to penicillin; Z88.5 Allergy status to narcotic agent; Z91.012 Allergy to eggs; Z88.8 Allergy status to other drugs, medicaments and biological substances; Z90.49 Acquired absence of other specified parts of digestive tract
CPT/HCPCS: 00811; 88305; J2704; J3010; J7120

== ENCOUNTER 2023-12-10 13:41 | Emergency (ER) | payer MEDICARE, OTHER ==
[2023-12-10 14:00] VITALS: BP 166/64; PULSE 72
== END 2023-12-10 14:34 | disposition home or self-care (01) ==
LOC: VM.ED 13:41
DX: S76.012A Strain of muscle, fascia and tendon of left hip, initial encounter (principal); E78.00 Pure hypercholesterolemia, unspecified; E11.9 Type 2 diabetes mellitus without complications; E66.9 Obesity, unspecified; Z79.82 Long term (current) use of aspirin; Z79.899 Other long term (current) drug therapy; Z88.8 Allergy status to other drugs, medicaments and biological substances; Z91.048 Other nonmedicinal substance allergy status; Z91.012 Allergy to eggs; Z88.1 Allergy status to other antibiotic agents; Z88.0 Allergy status to penicillin; Z88.5 Allergy status to narcotic agent; W18.40XA Slipping, tripping and stumbling without falling, unspecified, initial encounter
CPT/HCPCS: 99283

== ENCOUNTER 2023-12-18 14:24 | Observation (INO) | payer MEDICARE, OTHER ==
[2023-12-18] MEDS: oxyCODONE 5 MG Tab PO ONE (15:41)
[2023-12-18] MEDS: predniSONE 20 MG Tab PO ONE (15:42)
[2023-12-18] MEDS: Methocarbamol 500 MG Tab PO ONE (15:42)
[2023-12-18] MEDS: Ibuprofen 200 MG Tab PO ONE (15:43)
[2023-12-18] MEDS: Ibuprofen Susp 100 MG/5 ML 5 ML UD Cup PO ONE (15:50)
[2023-12-18] MEDS ORDERED: oxyCODONE 5 MG Tab PO PRN (17:27)
[2023-12-18] MEDS: Acetaminophen 500 MG Tab PO SCH ×2 (19:06→21:46)
[2023-12-18] MEDS: Ibuprofen 200 MG Tab PO SCH (19:06)
[2023-12-18] MEDS: atorvaSTATin 10 MG Tab PO SCH (21:47)
[2023-12-18] MEDS: Donepezil 10 MG Tab PO SCH (21:47)
[2023-12-18] MEDS: Nystatin Crm 30 GM Tube TOP SCH (22:57)
[2023-12-19] MEDS: Methocarbamol 500 MG Tab PO PRN (00:11)
[2023-12-19] MEDS: Hydrochlorothiazide 12.5 MG Cap PO SCH (08:06)
[2023-12-19] MEDS: predniSONE 20 MG Tab PO SCH (08:06)
[2023-12-19] MEDS: Enoxaparin 40 MG/0.4 ML Syringe SUBCUT SCH (12:05)
[2023-12-19 14:34] VITALS: BP 167/70; PULSE 57
== END 2023-12-19 16:25 | disposition home or self-care (01) ==
LOC: VM.ED 14:24 → SUPCPDRO 14:24 → VM.MS 17:08
PROVIDERS: ADMIT Physician Assistant Medical; ATTEND Physician Assistant Medical
DX: M25.551 Pain in right hip (principal); M25.552 Pain in left hip; E11.9 Type 2 diabetes mellitus without complications; G30.9 Alzheimer's disease, unspecified; F02.80 Dementia in other diseases classified elsewhere, unspecified severity, without behavioral disturbance, psychotic disturbance, mood disturbance, and anxiety; K21.9 Gastro-esophageal reflux disease without esophagitis; E78.5 Hyperlipidemia, unspecified; Z88.1 Allergy status to other antibiotic agents; Z88.5 Allergy status to narcotic agent; Z88.0 Allergy status to penicillin; Z88.8 Allergy status to other drugs, medicaments and biological substances
CPT/HCPCS: 96372; 97116-GP; 97162-GP; 99223; 99238; 99284; A9270-GY; G0378; J1650; J7512

== ENCOUNTER 2024-05-27 09:08 | Emergency (ER) | payer MEDICARE, OTHER ==
[2024-05-27 09:28] VITALS: BP 121/101; PULSE 54
[2024-05-27] MEDS: Ondansetron 4 MG Tab.DIS PO ONE (10:03)
[2024-05-27] MEDS: Take Home: Ondansetron 4 MG Tab.DIS, 5 Tab Pack PO ONE (10:55)
== END 2024-05-27 10:57 ==
LOC: VM.ED 09:08 → SUPCPDRO 09:08 → VM.ED 10:57
DX: R11.0 Nausea (principal); T43.215A Adverse effect of selective serotonin and norepinephrine reuptake inhibitors, initial encounter; E78.00 Pure hypercholesterolemia, unspecified; E11.9 Type 2 diabetes mellitus without complications; E66.9 Obesity, unspecified; Z79.82 Long term (current) use of aspirin; Z79.899 Other long term (current) drug therapy; Z88.0 Allergy status to penicillin; Z88.1 Allergy status to other antibiotic agents; Z88.8 Allergy status to other drugs, medicaments and biological substances; Z88.5 Allergy status to narcotic agent; Z91.012 Allergy to eggs; Z91.048 Other nonmedicinal substance allergy status
CPT/HCPCS: 99283; 99284; A9270-GY; Q0162

== ENCOUNTER 2024-07-29 10:20 | Emergency (ER) | payer MEDICARE, OTHER ==
[2024-07-29 12:04] VITALS: BP 169/77; PULSE 65
[2024-07-29] MEDS: Ketorolac 30 MG/ML SDV IM ONE (12:24)
== END 2024-07-29 12:30 | disposition home or self-care (01) ==
LOC: SUPCPDRO 10:20 → VM.ED 10:20
DX: S40.011A Contusion of right shoulder, initial encounter (principal); S05.11XA Contusion of eyeball and orbital tissues, right eye, initial encounter; M25.561 Pain in right knee; M25.562 Pain in left knee; E78.00 Pure hypercholesterolemia, unspecified; K21.9 Gastro-esophageal reflux disease without esophagitis; E11.9 Type 2 diabetes mellitus without complications; E66.9 Obesity, unspecified; Z79.82 Long term (current) use of aspirin; Z79.899 Other long term (current) drug therapy; Z88.1 Allergy status to other antibiotic agents; Z88.0 Allergy status to penicillin; Z88.8 Allergy status to other drugs, medicaments and biological substances; Z91.018 Allergy to other foods; Z91.012 Allergy to eggs; Z88.5 Allergy status to narcotic agent; W01.198A Fall on same level from slipping, tripping and stumbling with subsequent striking against other object, initial encounter
CPT/HCPCS: 73030; 73110; 73562; 96372; 99283; J1885; 99284

== ENCOUNTER 2024-08-31 22:12 | Emergency (ER) | payer MEDICARE, OTHER ==
[2024-08-31] MEDS ORDERED: Sodium Chloride 0.9% 10 ML Syringe FLUSH PRN (22:21)
[2024-08-31 23:04] LABS: BASOPHILS PERCENT AUTO 0.1 % (0.2-1.2); EOSINOPHILS ABSOLUTE AUTO 0.2 x10^3/uL (0.0-0.5); EOSINOPHILS PERCENT AUTO 2.2 % (0.0-4.0); HEMATOCRIT 38.6 % (33.0-47.0); HEMOGLOBIN 12.9 g/dL (12.0-16.0); IMMATURE GRAN ABSOLUTE AUTO 0.04 x10^3/uL (0.00-0.07); LYMPHOCYTES ABSOLUTE AUTO 1.2 x10^3/uL (1.0-4.8); LYMPHOCYTES PERCENT AUTO 16.9 % (25.0-50.0); MEAN CORPUSCULAR HGB CONC 33.4 g/dL (32.0-36.0); MEAN CORPUSCULAR VOLUME 86.7 fL (78.0-93.0); MONOCYTES ABSOLUTE AUTO 0.5 x10^3/uL (0.0-0.8); MONOCYTES PERCENT AUTO 6.8 % (2.0-11.0); NEUTROPHILS ABSOLUTE AUTO 5.3 x10^3/uL (1.8-7.7); NEUTROPHILS PERCENT AUTO 73.4 % (50.0-80.0); PLATELET COUNT,PLT 219 x10^3/uL (130-400); RED BLOOD CELL COUNT 4.45 x10^6/uL (4.00-5.50); WHITE BLOOD CELL COUNT,WBC 7.2 x10^3/uL (4.0-10.0)
[2024-08-31 23:08] LABS: APPEARANCE,URINE CLEAR (CLEAR); BILIRUBIN,URINE NEGATIVE (NEGATIVE); COLOR,URINE YELLOW (YELLOW); GLUCOSE,URINE NEGATIVE (NEGATIVE); KETONES,URINE NEGATIVE (NEGATIVE); LEUKOCYTE ESTERASE,URINE SMALL (NEGATIVE); NITRITE,URINE NEGATIVE (NEGATIVE); OCCULT BLOOD,URINE NEGATIVE (NEGATIVE); PROTEIN,URINE NEGATIVE (NEGATIVE); UROBILINOGEN,URINE 0.2 EU/dL (0.2)
[2024-08-31 23:17] LABS: BACTERIA,URINE RARE /HPF (NOT SEEN); MUCUS,URINE NOT SEEN /LPF (NOT SEEN); RBC,URINE NOT SEEN /HPF (NOT SEEN); SQUAMOUS EPITHELIAL CELLS,UR RARE /HPF (NOT SEEN)
[2024-08-31 23:22] LABS: PROTHROMBIN TIME 10.1 SEC (8.9-11.5)
[2024-08-31] MEDS: Prochlorperazine 10 MG/2 ML SDV IV ONE (23:25)
[2024-08-31 23:31] LABS: A/G RATIO 1.06; ALANINE AMINOTRANSFERASE,ALT 46 U/L (14-59); ALBUMIN 3.3 g/dL (3.4-5.0); ALKALINE PHOSPHATASE 119 U/L (46-116); AMYLASE 59 U/L (25-115); ASPARTATE AMNIOTRANSFERASE,AST 31 U/L (15-37); BILIRUBIN TOTAL 0.4 mg/dL (0.2-1.0); BLOOD UREA NITROGEN,BUN 15 mg/dL (7-18); CALCIUM 9.7 mg/dL (8.5-10.1); CARBON DIOXIDE,CO2 28 mmol/L (21-32); CHLORIDE,CL 103 mmol/L (98-107); CREATININE 1.4 mg/dL (0.55-1.02); GLUCOSE RANDOM 138 mg/dL (70-99); LIPASE 96 U/L (19-71); MAGNESIUM 1.9 mg/dL (1.8-2.4); POTASSIUM,K 3.7 mmol/L (3.5-5.1); PRO B-TYPE NATRIUR PEPT,BNPPRO 110 pg/mL (<=450); PROTEIN TOTAL,TP 6.4 g/dL (6.4-8.2); SODIUM,NA 139 mmol/L (136-145)
[2024-08-31 23:32] LABS: ANION GAP 11.7 mmol/L (5-15); ESTIMATED GFR 38 mL/min (>=60)
[2024-09-01] MEDS: Iopamidol 612 MG/ML 100 ML Bottle IVPUSH ONE (00:08)
[2024-09-01 00:31] VITALS: PULSE 56
[2024-09-01 01:00] VITALS: BP 175/74
== END 2024-09-01 02:35 | disposition home or self-care (01) ==
LOC: VM.ED 22:12
DX: K30 Functional dyspepsia (principal); E78.00 Pure hypercholesterolemia, unspecified; K21.9 Gastro-esophageal reflux disease without esophagitis; E11.9 Type 2 diabetes mellitus without complications; E66.9 Obesity, unspecified; Z90.49 Acquired absence of other specified parts of digestive tract; Z90.710 Acquired absence of both cervix and uterus; Z79.899 Other long term (current) drug therapy; Z79.82 Long term (current) use of aspirin; Z88.6 Allergy status to analgesic agent; Z88.1 Allergy status to other antibiotic agents; Z91.09 Other allergy status, other than to drugs and biological substances; Z91.012 Allergy to eggs; Z88.0 Allergy status to penicillin; Z88.8 Allergy status to other drugs, medicaments and biological substances
CPT/HCPCS: 36415; 80053; 81001; 82150; 83690; 83735; 83880; 84484; 85025; 85610; 85730; 93005; 96374; 99285-25; J0780; Q9967

== ENCOUNTER 2024-11-11 13:34 | Emergency (ER) | payer MEDICARE, OTHER ==
[2024-11-11 14:22] LABS: HEMATOCRIT 39.6 % (33.0-47.0); HEMOGLOBIN 12.9 g/dL (12.0-16.0); MEAN CORPUSCULAR HEMOGLOBIN 28.5 pg (26.0-32.0); MEAN CORPUSCULAR HGB CONC 32.6 g/dL (32.0-36.0); MEAN CORPUSCULAR VOLUME 87.6 fL (78.0-93.0); RED BLOOD CELL COUNT 4.52 x10^6/uL (4.00-5.50); WHITE BLOOD CELL COUNT,WBC 7.9 x10^3/uL (4.0-10.0)
[2024-11-11 14:37] LABS: ALANINE AMINOTRANSFERASE,ALT 54 U/L (14-59); ALBUMIN 3.4 g/dL (3.4-5.0); ALKALINE PHOSPHATASE 113 U/L (46-116); ASPARTATE AMNIOTRANSFERASE,AST 43 U/L (15-37); BILIRUBIN TOTAL 0.5 mg/dL (0.2-1.0); BLOOD UREA NITROGEN,BUN 11 mg/dL (7-18); CALCIUM 8.9 mg/dL (8.5-10.1); CARBON DIOXIDE,CO2 30 mmol/L (21-32); CHLORIDE,CL 104 mmol/L (98-107); CREATININE 1.2 mg/dL (0.55-1.02); GLUCOSE RANDOM 120 mg/dL (70-99); POTASSIUM,K 3.5 mmol/L (3.5-5.1); PROTEIN TOTAL,TP 6.5 g/dL (6.4-8.2); SODIUM,NA 141 mmol/L (136-145)
[2024-11-11 14:41] LABS: ANION GAP 10.5 mmol/L (5-15); ESTIMATED GFR 46 mL/min (>=60)
[2024-11-11 14:50] LABS: APPEARANCE,URINE CLEAR (CLEAR); BILIRUBIN,URINE NEGATIVE (NEGATIVE); COLOR,URINE YELLOW (YELLOW); GLUCOSE,URINE NEGATIVE (NEGATIVE); KETONES,URINE NEGATIVE (NEGATIVE); LEUKOCYTE ESTERASE,URINE SMALL (NEGATIVE); NITRITE,URINE NEGATIVE (NEGATIVE); OCCULT BLOOD,URINE NEGATIVE (NEGATIVE); PROTEIN,URINE NEGATIVE (NEGATIVE); UROBILINOGEN,URINE 0.2 EU/dL (0.2)
[2024-11-11] MEDS: Acetaminophen 500 MG Tab PO ONE (15:05)
[2024-11-11] MEDS: Famotidine 20 MG Tab PO ONE (15:05)
[2024-11-11 15:07] LABS: BACTERIA,URINE RARE /HPF (NOT SEEN); RBC,URINE 0-5 /HPF (NOT SEEN); SQUAMOUS EPITHELIAL CELLS,UR RARE /HPF (NOT SEEN)
[2024-11-11 15:08] LABS: MUCUS,URINE NOT SEEN /LPF (NOT SEEN)
[2024-11-11] MEDS: Take Home: Cephalexin 500 MG Cap, 6 Cap Pack PO ONE (16:30)
[2024-11-11 18:49] VITALS: BP 175/79; PULSE 57
== END 2024-11-11 16:36 | disposition home or self-care (01) ==
LOC: VM.ED 13:34
DX: N30.00 Acute cystitis without hematuria (principal); M25.552 Pain in left hip; M25.512 Pain in left shoulder; E78.00 Pure hypercholesterolemia, unspecified; E11.9 Type 2 diabetes mellitus without complications; Z90.49 Acquired absence of other specified parts of digestive tract; Z88.1 Allergy status to other antibiotic agents; Z88.0 Allergy status to penicillin; Z88.5 Allergy status to narcotic agent; Z88.8 Allergy status to other drugs, medicaments and biological substances; Z91.012 Allergy to eggs; Z91.048 Other nonmedicinal substance allergy status; Z79.899 Other long term (current) drug therapy; Z79.82 Long term (current) use of aspirin; W18.39XA Other fall on same level, initial encounter
CPT/HCPCS: 36415; 51702; 70450; 73020-LT; 74176; 80053; 81001; 85027; 87086; 99284; A9270-GY